=== PATIENT | female | born 1995 | race Caucasian/White ===

== ENCOUNTER → 2024-09-25 | Outpatient (CLI) | payer OTHER, SELFPAY ==
[2024-09-28 21:07] LABS: Chlamydia By Nucleic Acid AMP Negative (Negative); Gonococcus By Nucleic Acid AMP Negative (Negative)
== END | disposition home or self-care (01) ==
LOC: LABSPEC 11:39
PROVIDERS: Referring Provider Obstetrics & Gynecology; Visit Provider Obstetrics & Gynecology
DX: O99.210 Obesity complicating pregnancy, unspecified trimester (principal); Z3A.00 Weeks of gestation of pregnancy not specified
CPT/HCPCS: 87086; 87088; 87491; 87591

== ENCOUNTER → 2024-10-08 | Outpatient (CLI) | payer OTHER, SELFPAY ==
[2024-10-08 17:08] LABS: Absolute Lymphocyte Count 1.99 X10^3/uL (0.83-4.51); Absolute Neutrophil Count 6.6 X10^3/uL (2.0-7.7); Basophil# 0.03 X10^3/uL; Basophil% 0.3 % (0-1); Eosinophil# 0.07 X10^3/uL; Eosinophils% 0.8 % (0-5); Hematocrit 35.1 % (37-47); Hemoglobin 11.5 g/dL (12.0-15.0); Lymphocyte # 1.99 X10^3/ul (0.83-4.51); Lymphocyte % 21.6 % (19-41); Mean Corp Hgb Conc 32.8 g/dL (32-36); Mean Corpuscular Hgb 29.8 pg (27.0-32.0); Mean Corpuscular Volume 90.9 fL (81-99); Mean Platelet Vol. 9.5 fl (6.2-12.0); Monocyte# 0.47 X10^3/uL; Monocyte% 5.1 % (0-10); NRBC Flagged by Analyzer 0 % (0-5); Neutrophil # 6.62 X10^3/uL (2.7-7.7); Neutrophil % 71.9 % (47-70); Platelet Count 277 K/mm3 (150-450); RBC Distribution Width CV 13.1 % (11.6-14.6); RBC Distribution Width SD 42.8 fl (35.1-43.9); Red Blood Count 3.86 M/mm3 (4.2-5.4); White Blood Count 9.2 K/mm3 (4.4-11.0)
[2024-10-08 18:12] LABS: HIV Nonreactive (Nonreactive); Hepatitis B Surface Antigen Nonreactive (Nonreactive); Hepatitis C Antibody Nonreactive (Nonreactive); Rubella IgG REAC (Nonreactive); Syphilis Antibodies Nonreactive (Nonreactive)
[2024-10-08 19:02] LABS: Hemoglobin A1c 5.1 % (<=5.6)
== END | disposition home or self-care (01) ==
PROVIDERS: Referring Provider Obstetrics & Gynecology; Visit Provider Obstetrics & Gynecology
DX: O99.210 Obesity complicating pregnancy, unspecified trimester (principal); Z3A.00 Weeks of gestation of pregnancy not specified
CPT/HCPCS: 36415; 83036; 85025; 86703; 86762; 86780; 86803; 86850; 86900; 86901; 87340

== ENCOUNTER → 2024-12-04 | Outpatient (CLI) | payer OTHER, SELFPAY ==
--- NOTE | 2024-12-04 15:18 | US_ITS ---
PROCEDURE: OB ANATOMY W/ TRANSVAGINAL 12/04/2024 REASON FOR EXAM: ANATOMY SCAN 18-20WKS TECHNIQUE: OB ANATOMY W/ TRANSVAGINAL COMPARISON: None FINDINGS Number: 1 Position: Transverse left Placental Position: Posterior and not low-lying Placental Abnormalities: No evidence of previa. DIMENSIONS: Biparietal Diameter: 4.6 cm: 19 weeks and 5 days: 23rd percentile/ Head Circumference: 17 cm: 19 weeks and 4 days: 11 percentile/ Abdominal Circumference: 15.2 cm: 20 weeks and 3 days: 43rd percentile/ Femur Length: 3.3 cm: 20 weeks and 1 day: 33rd percentile/ ESTIMATED WEIGHT: 342 g plus/-51 g ESTIMATED WEIGHT PERCENTILE (24+ weeks): 35th ESTIMATED GESTATIONAL AGE: Baseline: 20 weeks and 3 days By Ultrasound: 19 weeks and 6 days ESTIMATED DATE OF DELIVERY: Baseline: April 20, 2025 By Ultrasound: April 24, 2025 BIOPHYSICAL ASSESSMENT: Amniotic Fluid Volume: 4.4 Amniotic Fluid Index: Within normal limits (8-24 cm normal range) Cardiac Motion: 147 beats per minute (average) Trunk and Limb Motion: Present. MATERNAL ANATOMY: Adnexa: Both maternal ovaries are visualized and unremarkable. Cervical Length (if measured): 4.9 cm ANATOMY: Spine: Unremarkable Cranium: Unremarkable Cerebellum: Unremarkable Cisterna Magna: Unremarkable Cavum Septum Pellucidi: Unremarkable Lateral Ventricles: Unremarkable Choroid Plexus: Unremarkable Midline Falx: Unremarkable Nuchal Fold: Unremarkable Heart: Unremarkable Stomach: Unremarkable Kidneys: Unremarkable Bladder: Unremarkable Umbilical Cord: Normal placental insertion. cord insertion not seen well. Extremities: Unremarkable US/OB Anatomy w/ Transvaginal IMPRESSION: Single live intrauterine gestation with a mean gestational age of 19 weeks and 6 days. Reading Location: [facility]
== END | disposition home or self-care (01) ==
LOC: US 15:17
PROVIDERS: Referring Provider Nurse Practitioner Women's Health; Visit Provider Nurse Practitioner Women's Health
DX: Z34.92 Encounter for supervision of normal pregnancy, unspecified, second trimester (principal)
CPT/HCPCS: 76805; 76817

== ENCOUNTER → 2025-01-13 | Outpatient (CLI) | payer OTHER, SELFPAY ==
[2025-01-13 11:00] LABS: Hematocrit 34.9 % (37-47); Hemoglobin 11.9 g/dL (12.0-15.0); Immature Granulocytes Count 0.080 X10^3/uL (0.0-0.0); Mean Corp Hgb Conc 34.1 g/dL (32-36); Mean Corpuscular Volume 94.1 fL (81-99); Mean Platelet Vol. 9.7 fl (6.2-12.0); NRBC Flagged by Analyzer 0 % (0-5); Platelet Count 286 K/mm3 (150-450); RBC Distribution Width CV 12.9 % (11.6-14.6); RBC Distribution Width SD 44.0 fl (35.1-43.9); Red Blood Count 3.71 M/mm3 (4.2-5.4); White Blood Count 10.5 K/mm3 (4.4-11.0)
[2025-01-13 12:12] LABS: Glucose Challenge Gest 1H 50g 152 mg/dL (70-140); HIV Nonreactive (Nonreactive); Syphilis Antibodies Nonreactive (Nonreactive)
--- OUTSIDE RECORDS SUMMARY | 2025-01-13 14:26 | XMS RPT_ITS | CCD ---
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 mass] 29.8 pg Normal 27.0-32.[address] [facility] Comment on above: Performed By: #### L 509.8002, L3890.6006, L509.4006, L100.0100, L3890.6102, L900.0098, BTS, L3890.6301, L501.9985 #### [facility] [address] [place], [address] MCHC (RBC) [Mass/Vol] 32.8 g/dL Normal 32-36 [facility] Comment on above: Performed By: #### L 509.8002, L3890.6006, L509.4006, L100.0100, L3890.6102, L900.0098, BTS, L3890.6301, L501.9985 #### [facility] [address] [place], [address] MCV (RBC) [Entitic vol] 90.9 fL Normal 81-99 [facility] Comment on above: Performed By: #### L 509.8002, L3890.6006, L509.4006, L100.0100, L3890.6102, L900.0098, BTS, L3890.6301, L501.9985 #### [facility] [address] [place], [address] Monocytes/100 WBC (Bld) 5.1 % Normal 0-10 [facility] Comment on above: Performed By: #### L 509.8002, L3890.6006, L509.4006, L100.0100, L3890.6102, L900.0098, BTS, L3890.6301, L501.9985 #### [facility] [address] [place], [address] Neutrophils/100 WBC (Bld) 71.9 % High 47-[address] [facility] Comment on above: Performed By: #### L 509.8002, L3890.6006, L509.4006, L100.0100, L3890.6102, L900.0098, BTS, L3890.6301, L501.9985 #### [facility] [address] [place], [address] Nucleated RBC (Bld) [#/Vol] 0 10*3/uL Normal 0-[address] [facility] Comment on above: Performed By: #### L 509.8002, L3890.6006, L509.4006, L100.0100, L3890.6102, L900.0098, BTS, L3890.6301, L501.9985 #### [facility] [address] [place], [address] Platelet mean volume (Bld) [Entitic vol] 9.5 fL Normal 6.2-12.[address] [facility] Comment on above: Performed By: #### L 509.8002, L3890.6006, L509.4006, L100.0100, L3890.6102, L900.0098, BTS, L3890.6301, L501.9985 #### [facility] [address] [place], [address] Platelets (Bld) [#/Vol] 277 10*3/uL Normal 150-[address] [facility] Comment on above: Performed By: #### L 509.8002, L3890.6006, L509.4006, L100.0100, L3890.6102, L900.0098, BTS, L3890.6301, L501.9985 #### [facility] [address] [place], [address] RBC (Bld) [#/Vol] 3.86 10*6/uL Low 4.2-5.4 [facility] Comment on above: Performed By: #### L 509.8002, L3890.6006, L509.4006, L100.0100, L3890.6102, L900.0098, BTS, L3890.6301, L501.9985 #### [facility] [address] [place], [address] RDW SD 42.8 fl Normal 35.1-43.[address] [facility] Comment on above: Performed By: #### L 509.8002, L3890.6006, L509.4006, L100.0100, L3890.6102, L900.0098, BTS, L3890.6301, L501.9985 #### [facility] [address] [place], [address] WBC (Bld) [#/Vol] 9.2 10*3/uL Normal 4.4-11.0 [facility] Comment on above: Performed By: #### L 509.8002, L3890.6006, L509.4006, L100.0100, L3890.6102, L900.0098, BTS, L3890.6301, L501.9985 #### [facility] [address] [place], [address] Eosinophil percentageOrdered By: Audra Garcia on 10-08-2024 Eosinophils/100 WBC (Bld) 0.8 % 0-[address] [facility] Erythrocyte distribution wid th ratioOrdered By: Audra Garcia on 10-08-2024 Erythrocyte distribution width (RBC) [Ratio] 13.1 % 11.6-14.[address] [facility] Erythrocyte distribution wid th standard deviationOrdered By: Audra Garcia on 10-08-2024 Erythrocyte distribution width (RBC) [Ratio] 42.8 fl 35.1-43.[address] [facility] HIVon 10-08-2024 HIV Non-Reactive Normal Nonreactive [facility] Comment on above: Result Comment: Non- Reactive Reactive Repeatedly reactive samples must be confirmed according to CDC recommended confirmatory algorithms. The subresults for either HIVAG or AHIV can be used as an aid in the selection of the confirmation algorithm for reactive samples. Send out specimens with Reactive results to [facility] for confirmation. Order the HIV antibody detection and differentiation: lc#[id number] Performed By: #### L 509.8002, L3890.6006, L509.4006, L100.0100, L3890.6102, L900.0098, BTS, L3890.6301, L501.9985 ####[facility] [address] [place], [place], [address] Hematocrit Auto (Bld) [Volum e fraction]Ordered By: Audra Garcia on 10-08-2024 Hematocrit (Bld) [Volume fraction] 35.1 % Low 37-[address] [facility] Hemoglobin A1con 10-08-2024 HbA1c (Bld) [Mass fraction] 5.1 % Normal <=5.[address] [facility] Comment on above: Result Comment: Norm al < 5.7 % Prediabetic 5.7 - 6.4 % Diabetic >or= 6.5 % Please note range changes. Performed By: #### L 509.8002, L3890.6006, L509.4006, L100.0100, L3890.6102, L900.0098, BTS, L3890.6301, L501.9985 ####[facility] [address] [place], [address] Hemoglobin A1c percentageOrd ered By: Audra Garcia on 10-08-2024 HbA1c (Bld) [Mass fraction] 5.1 % <5.[address] [facility] Comment on above: Normal < 5.7 % Predi abetic 5.7 - 6.4 % Diabetic >or= 6.5 % Please note range changes. Hemoglobin measurementOrdere d By: Audra Garcia on 10-08-2024 Hemoglobin (Bld) [Mass/Vol] 11.5 g/dL Low 12.0-15.[address] [facility] Hepatitis C Antibodyon 10-08 Hepatitis C Ab Non-Reactive Normal Nonreactive [facility] Comment on above: Result Comment: Reac tive: Presumptive evidence of antibodies to HCV. Follow CDC recommendations for supplemental testing. Non-Reactive: Antibodies to HCV were not detected; does not exclude the possibility of exposure to HCV Reactive Results are presumptive evidence of antibodies to HCV. Follow CDC recommendations for supplemental testing. Order confirmation testing: HCV Quant by PCR testing - HCVPCR #[id number] Non Reactive: < 0.8 Equivocal: >/= 0.8 to < 1.0 Reactive: >/= 1.0 The CDC requires that a reactive/equivocal HCV antibody result be sent out for confirmation. HCV Quant by PCR testing. Performed By: #### L 509.8002, L3890.6006, L509.4006, L100.0100, L3890.6102, L900.0098, BTS, L3890.6301, L501.9985 ####[facility] [address] [place], [address] Immature granulocytes/100 WB C Auto (Bld)Ordered By: Audra Garciaparrish on 10-08-2024 Immature granulocytes/100 WBC (Bld) 0.300 % 0.0-0.[address] [facility] Comment on above: IG% - Immature Granu locytes (promyelocytes, myelocytes and metamyelocytes) > 1% indicates that a LEFT SHIFT is Present. L3890.6102on 10-08-2024 HEP B Surf Ag Non-Reactive Normal Nonreactive [facility] Comment on above: Result Comment: Reac tive: Presumptive evidence of HBV. Repeatedly reactive samples must be confirmed using a neutralization test ([employer] HBsAg Confirmatory Test) Non-Reactive: HBsAg not detected; does not exclude the possibility of exposure to HBV Performed By: #### L 509.8002, L3890.6006, L509.4006, L100.0100, L3890.6102, L900.0098, BTS, L3890.6301, L501.9985 ####[facility] [address] [facility] [place], [place], [address] L509.4006on 10-08-2024 Rubella IgG REAC Normal Nonreactive [facility] Comment on above: Result Comment: Anti body Result: Interpretation Non-Reactive: Non-Immune Reactive: Immune The following results were obtained with the [employer] Rubella IgG assay. Results from assays of other manufacturers cannot be used interchangeably. Performed By: #### L 509.8002, L3890.6006, L509.4006, L100.0100, L3890.6102, L900.0098, BTS, L3890.6301, L501.9985 #### [facility] [address] [facility] [place], [address] Laboratory - Microbiology an d Antimicrobial susceptibilityOrdered By: Audra Garcia on 10-08-2024 HBV surface Ag Ql (S) Non-Reactive Nonreactive [facility] Comment on above: Reactive: Presumptiv e evidence of HBV. Repeatedly reactive samples must be confirmed using a neutralization test ([employer] HBsAg Confirmatory Test)Non-Reactive: HBsAg not detected; does not exclude the possibility of exposure to HBV MCV (mean corpuscular volume ) determinationOrdered By: Audra Garcia on 10-08-2024 MCV (RBC) [Entitic vol] 90.9 fL 81-99 [facility] Mean corpuscular hemoglobin (MCH) determinationOrdered By: Audra Garcia on 10-08-2024 MCH (RBC) [Entitic mass] 29.8 pg 27.0-32.[address] [facility] Mean corpuscular hemoglobin concentration (MCHC) determinationOrdered By: Audra Garcia on 10-08-2024 MCHC (RBC) [Mass/Vol] 32.8 g/dL 32-36 [facility] Mean platelet volume determi nationOrdered By: Audra Garcia on 10-08-2024 Platelet mean volume (Bld) [Entitic vol] 9.5 fL 6.2-12.[address] [facility] Monocyte percentageOrdered B y: Audra Garcia on 10-08-2024 Monocytes/100 WBC (Bld) 5.1 % 0-10 [facility] NATERAon 10-08-2024 NATURA SEE SCANNED REPORT Normal [facility] Comment on above: Performed By: #### L 509.8002, L3890.6006, L509.4006, L100.0100, L3890.6102, L900.0098, BTS, L3890.6301, L501.9985 #### [facility] [address] [facility] [place], [address] Neutrophil percentageOrdered By: Audra Garcia on 10-08-2024 Neutrophils/100 WBC (Bld) 71.9 % High 47-[address] [facility] No Panel InformationOrdered By: Audra Garcia on 10-08-2024 HIV (1&2) Antibody Non-Reactive Nonreactive [facility] Comment on above: Non-ReactiveReactive Repeatedly reactive samples must be confirmed according to CDC recommended confirmatory algorithms. The subresults for either HIVAG or AHIV can be used as an aid in the selection of the confirmation algorithm for reactive samples.Send out specimens with Reactive results to [facility] for confirmation.Order the HIV antibody detection and differentiation: #[id number] Nucleated red blood cell per centageOrdered By: Audra Garcia on 10-08-2024 Nucleated RBC/100 WBC (Bld) [Ratio] 0 % 0-[address] [facility] Platelet countOrdered By: Nhung Garcia on 10-08-2024 Platelets (Bld) [#/Vol] 277 10*3/uL 150-[address] [facility] RBC Auto (Bld) [#/Vol]Ordere d By: Audra Garcia on 10-08-2024 RBC (Bld) [#/Vol] 3.86 10*6/uL Low 4.2-5.4 [facility] Syphilis Antibodieson 2024 Syphilis Abs Non-Reactive Normal Nonreactive [facility] Comment on above: Performed By: #### L 509.8002, L3890.6006, L509.4006, L100.0100, L3890.6102, L900.0098, BTS, L3890.6301, L501.9985 ####[facility] [address] [place], [address] Type AND Screenon 10-08-2024 ABO and Rh group Nom (Bld) Blood group O Rh(D) positive Normal [facility] Comment on above: Order Comment: PN Performed By: #### L 509.8002, L3890.6006, L509.4006, L100.0100, L3890.6102, L900.0098, BTS, L3890.6301, L501.9985 #### [facility] [address] [place], [address] White blood cell (WBC) count Ordered By: Audra Garcia on 10-08-2024 WBC (Bld) [#/Vol] 9.2 10*3/uL 4.4-11.0 [facility] Chlamydia/GC MELANIA aptimaon CHLAMY,NUC ACID Negative Normal Negative [facility] Comment on above: Performed By: #### M 100.2200, L7000.1800 #### [facility] [address] [place], [address] GC BY NUC ACID Negative Normal Negative [facility] Comment on above: Result Comment: Perf ormed at: =G - [facility] [address] [place] [id number] Bereavement Counselor: Josephine Obrien MD, Phone: [phone] Performed By: #### M 100.2200, L7000.1800 #### [facility] [address] [place], [place], [id number] Urine Cultureon 09-27-2024 URC Mixed Gram Positive Organisms [place] Count 80,000-100,000 MIXC Mixed contaminants. Submit a new specimen if indicated. Normal [facility] Comment on above: Performed By: #### M 100.2200, L7000.1800 #### [facility] [address] [place], [place], [id number] C. trachomatis rRNA MELANIA+prob e Ql (Unsp spec)Ordered By: Audra Garcia on 09-25-2024 Chlamydia DNA (MELANIA) Negative Negative [facility] Chlamydia trachomatis rRNA d etection by probe and target amplification methodOrdered By: Audra Garcia on 09-25-2024 C. trachomatis rRNA MELANIA+probe Ql (Unsp spec) Negative Negative [facility] Neisseria gonorrhoeae nuclei c acid detection by amplified probe techniqueOrdered By: Audra Garcia on 09-25-2024 N. gonorrhoeae DNA MELANIA+probe Ql (Unsp spec) Negative Negative [facility] Comment on above: Performed at: =[address] [id number] Director: Josephine Obrien MD, Phone: [phone] [employer] Office Visit Reporton 09-25-2024 [employer] Office Visit Report [facility] [address], [address] [place] [address] OFFICE VISIT Date of Service: 09/25/24 MR#: [id number] Acct: [id number] Name: AMIRA SULLIVAN Rep #: [id number] : 1995 Provider: Dr. Audra morris MD Age/Sex: 28/F Location[place] [facility] [place]: Signed Intake Vital Signs 09/25/24 10:22 Height 5 ft 8 in Weight: 255 lb BMI 38.7 BP 139/85 H Intake Visit Reasons: NEW OB Dietary Aid Required: No Is patient in pain?: No Feel stressed/tense/nerv ous/anxious/difficu lty sleeping: to some extent (patient has a lot of anxiety) Allergies No Known Allergies Allergy (Unverified 09/25/24 10:16) Medications ???Medication ???Instructions ???Recorded ???Confirmed ???Type PNV-iron 29 mg-folic acid 1 pkg PO 09/10/24 History ef-vojns-1-dha 200 mg oral combo pack ondansetron HCl 4 mg tablet 4 mg PO Q4H #60 tabs 09/25/2409/15 Rx Last Menstrual Period: 07/14/24 Zika: Zika virus screening: Negative : Yes PFSH PFSH Medical History (Updated 09/25/24 @ 11:[address] 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 pets and animals: cat(s) and dog(s) history of recent travel: No sexually active: Yes Smoking Status: Former smoker quit date: 06/17/24 Tobacco: How many years used: 4 Smokeless tobacco user: other second hand exposure: No alcohol intake: never substance use type: does not use diet: lactose free well-balanced diet: about half the time caffeine: No during the past year weight has: increased > 10 lbs what type of physical activity do you participate in: walking and other details: ballet frequency: 1-2 times per week seatbelt use: always do you feel safe at home: Yes additional social history: Leonides - retired vet, [employer] currently History 1 Elective abortions Hx Para 0 Spontaneous abortions Hx # Term Pregnancies Ectopic pregnancies Hx # Pregnancies Multiple births # of living children HPI NEW OB Details: AMIRA SULLIVAN is a 28 year old who presents for New OB visit. OB Visit KRAIG Calculator Estimated Delivery Date Method Current WG Current Estimate 04/20/25 LMP (Certain) 10w 3d Other Estimates 04/20/25 Ultrasound #1 10w 3d Comments: HIV: Urine Culture: Sequential Screen: NIPT Screen: Estimated Due Date: 04/20/25 Expected Delivery Route/Plan Labor Preferences- CB/BF classes: [] labor support person: [] labor intervention preferences: [] pain management options preferred: [] cut cord/dad catch: [] : [] PP control planned: [] discussed possible routes of delivery and associated risks: [] special requests: [] Specific Issue/Plans Covid status: [] Flu vaccine: [] Tdap vaccine: [] Rhogam: [] LARC form signed: [] Problem list reviewed and updated with the most current plan of care details and appropriate orders placed. Relevant counseling for the gestational age provided. Continue routine care and follow up unless otherwise noted in visit notes/problem list details Initial Weight: Not Recorded Date -???-???-???-???-?? ?-???-???-???-???-? ??-???-???- EGA Weight BP Urine Prot -???-???-???-???-?? ?-???-???-???-???-? ??-???-???- Glucose FHR FuHt Pres Dilation -???-???-???-???-?? ?-???-???-???-???-? ??-???-???- Effaced St Visit Note 09/25/24 -???-???-???-???-?? ?-???-???-???-???-? ??-???-???- 10w 3d 255 lb 139/85 -???-???-???-???-?? ?-???-???-???-???-? ??-???-???- 169 -???-???-???-???-?? ?-???-???-???-???-? ??-???-???- SM- CRL cons with LMP SM- CRL 3.5 cm cons with LMP Menstrual History Last Menstrual Period: 07/14/24 Reported LMP: definite Normal amount/duration: No (shorter than normal, 3 days) On hormonal BC at conception: No hCG+: 08/12/24 Antepartum Record Genetic Screening: Congenital Heart Defect: Other, Neural Tube Defect: Other, Hemoglobinopathy Or Carrier: Other, Cystic Fibrosis: Other, Chromosome Abnormality: Other, Yazan-Sachs: Other, Hemophilia: Partner ( Leonides - factor V, was on Eliquis), Intellectual Disability/Autism: Other, Recurrent Loss/Stillbirth: Other, Other Structural Defect: Other, Other Genetic Disease: Other and Maternal Metabolic Disorder: Other Infection History: Live with someone with TB or Exposed to TB: No, Patient or Partner has history of Genital Herpes: No, Roberto (more content not included)... Normal [facility] Urine cultureOrdered By: Petey Garcia on 09-25-2024 Bacteria identified Cx Nom (U) Positive Abnormal [facility] CNOVon 07-04-2023 CNOV Office Visit ([facility]) ---- AMIRA SULLIVAN ([id number]) 1995 F Date Time Provider Department 07/04/23 1:00 PM MARY CERVANTES [facility] During your visit today, we recorded the following information about you: Temperature Pulse Respiration Blood pressure 97.9 degrees 71/minute 16/minute 122/74 Weight Height Last Period 107 kg 1.727 m 06/18/23 Mary Cervantes MD 07/04/2023 2:49 PM Signed ESTABLISHED PATIENT Amira SULLIVAN is a 27 year old female Patient presents with: Establish Care: Right wrist pain through the thumb was broken as a child HISTORY OF PRESENT ILLNESS She is here to establish care. Her former PCP is Dr Jessica Dial with [facility]. She reports right wrist pain for a couple months ago. She reports difficulty using it for awhile but better more recently. She reports she was unable to extend her thumb pain and had excruciating pain to grasp anything twisting and lifting. Or bumped it. She tried stabilizer, ice. Now she has dull ache all the time. She is able to grasp now. 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 She has exercise induced asthma She would like to lose weight. She had been exercising but not as much lately with her fiance's health concerns so gym membership on hold. She has been eating healthier. She has lost 20# in last couple months She is getting in October. HISTORIES History reviewed. No pertinent family history. History reviewed. No pertinent past medical history. History reviewed. No pertinent surgical history. Social History Tobacco Use Smoking status: Never Smokeless tobacco: Never Allergies: ALLERGIES No Known Allergies Medications: etonogestrel (NEXPLANON) 68 mg subdermal implant TRACI SALBADOR 68 mg by SUBDERMAL route one time only. benzonatate (TESSALON PERLE) 100 mg capsule Take 1 capsule by mouth three times daily as needed. (Patient not taking: Reported on 07/04/2023) REVIEW OF SYSTEMS GENERAL: No weight loss, malaise or fevers. RESPIRATORY: Negative for cough, hemoptysis, wheezing or shortness of breath. CARDIOVASCULAR: Negative for chest pain, leg swelling or palpitations. All other systems reviewed and negative other than HPI. PHYSICAL EXAM BP 122/74 Pulse 71 Temp 36.6 ?C (97.9 ?F) Resp 16 Ht 172.7 cm (5' 8) Wt 107 kg (235 lb 14.3 oz) LMP 06/18/2023 (Approximate) SpO2 100% BMI 35.87 kg/m? General Appearance: Well appearing, alert, in no acute distress, well-hydrated, well nourished.. Head: Normocephalic, no masses, lesions, tenderness or abnormalities. Ears: External ears normal, canals clear. Oropharynx: Lips, mucosa, and tongue normal, teeth and gums normal, oropharynx normal. Lungs: Lungs clear to auscultation. No wheezing, rhonchi, rales.. Heart: RRR without murmur, gallop, or rubs. No ectopy. Abdomen: Normal abdominal exam, Abdomen soft, non-tender. Bowel sounds normal. No masses, organomegaly. Musculoskeletal: No joint swelling or tenderness, Negative findings: Pulses: 2+, Positive findings: joint location: on right wrist pain and painful movement.+ tenderness adjacent to right radial styloid; +Kasey's on right ASSESSMENT: ASSESSMENT/PLAN: 1. 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 Advise wrist splint, ice as needed, Can take OTC Ibuprofen or Aleve, rest as able - XR WRIST GENERAL 3V PA/LAT/OBL RIGHT - Call if no better will refer to ortho hand Return ~6 months for CPE MD Stephen Joy Tara, MA 07/04/2023 2:49 PM Signed Covid-19 Vaccine(1) Never done HPV Vaccine(1 - 2-dose series) Never done Hepatitis C Screening Never done HIV Screening Never done Pap Testing Never done DTaP,Tdap,Td Vaccine(7 - Td or Tdap) due on 02/02/2020 Influenza Vaccine(1) Never done Depression Assessment Never done Allergies As of Date: 07/04/2023 (No Known Allergies) Date Reviewed: 07/04/2023 Reviewed by: Mary Cervantes MD - Fully Assessed Reason for Visit: Establish Care [42] Cmt: Right wrist pain through the thumb was broken as a child Primary Visit Diagnosis:Right wrist pain [M25.531] Other Visit Diagnoses:Tendiniti s, de Quervain's [M65.4] Asthma, exercise induced [J45.990] Order(s):XR WRIST GENERAL 3V PA/LAT/OBL RIGHT [9209559] Order #: [id number] FUTURE Prescriptions as of 07/04/2023 - etonogestrel (NEXPLANON) 68 mg subdermal implant TRACI SALBADOR 68 mg by SUBDERMAL route one time only. - benzonatate (TESSALON PERLE) 100 mg capsule Take 1 capsule by mouth three times daily as needed. Problem List As Of Date 07/04/2023 Noted Resolved Orthostatic hypotension [I95.1] 12/20/2011 Tendinitis, de Quervain's [M65.4] 07/04/2023 Asthma, exercise induced [J45.990] 07/04/2023 Right wrist pain [M25.531] 07/04/2023 Level of Serv (more content not included)... Normal [facility] Vital Signs Date Time Vital Sign Value Performing Clinician Marilyn duran 01-13-2025 09:59-0400 Body height 172.[address] Audra Garcia MD Work Phone: [facility] 01-13-2025 09:59-0400 Body mass index (BMI) [Ratio] 45.5 kg/m2 Dr. Audra Garcia MD Work Phone: [phone] [place] [address] 01-13-2025 09:59-0400 Body weight 120.[address] Audra Garcia MD Work Phone: [phone] [place] [address] 01-13-2025 09:59-0400 Diastolic blood pressure 73 mm[Hg] Dr. Audra Garcia MD Work Phone: [phone] [place] [address] 01-13-2025 09:59-0400 Systolic blood pressure 113 mm[Hg] Dr. Audra Garcia MD Work Phone: [phone] [place] [address] 12-15-2024 10:07-0400 Body height 172.[address] Audra Garcia MD Work Phone: 4(314)744-039676 [place] [address] 12-15-2024 10:07-0400 Body mass index (BMI) [Ratio] 39.5 kg/m2 Dr. Audra Garcia MD Work Phone: 2(138)766-683876 [place] [address] 12-15-2024 10:07-0400 Body weight 117.[address] Audra Garcia MD Work Phone: 9(895)167-927376 [place] [address] 12-15-2024 10:07-0400 Diastolic blood pressure 72 mm[Hg] Dr. Audra Garcia MD Work Phone: 3(096)089-748276 [place] [address] 12-15-2024 10:07-0400 Systolic blood pressure 120 mm[Hg] Dr. Audra Garcia MD Work Phone: 7(192)035-502776 [place] [address] 11-17-2024 13:32-0400 Body height 172.[address] Audra Garcia MD Work Phone: 3(818)793-304076 [place] [address] 11-17-2024 13:32-0400 Body mass index (BMI) [Ratio] 39.2 kg/m2 Dr. Audra Garcia MD Work Phone: 8(268)819-450876 [place] [address] 11-17-2024 13:32-0400 Body weight 117.[address] Audra Garcia MD Work Phone: 6(358)376-795576 [place] [address] 11-17-2024 13:32-0400 Diastolic blood pressure 70 mm[Hg] Dr. Audra Garcia MD Work Phone: 7(694)960-159976 [place] [address] 11-17-2024 13:32-0400 Systolic blood pressure 124 mm[Hg] Dr. Audra Garcia MD Work Phone: 0(309)727-618276 [place] [address] 10-23-2024 10:47-0400 Body mass index (BMI) [Ratio] 39.3 kg/m2 Dr. Audra Garcia MD Work Phone: 8(421)027-392876 [place] [address] 10-23-2024 10:47-0400 Body weight 117.[address] Audra Garcia MD Work Phone: 8(779)644-122376 [place] [address] 10-23-2024 10:47-0400 Diastolic blood pressure 68 mm[Hg] Dr. Audra Garcia MD Work Phone: 0(552)281-431076 [place] [address] 10-23-2024 10:47-0400 Systolic blood pressure 116 mm[Hg] Dr. Audra Garcia MD Work Phone: 4(125)072-403476 [place] [address] 09-25-2024 10:22-0400 Body height 172.[address] Audra Garcia MD Work Phone: 2(482)731-366776 [place] [address] 09-25-2024 10:22-0400 Body mass index (BMI) [Ratio] 38.7 kg/m2 Dr. Audra Garcia MD Work Phone: 7(035)865-550376 [place] [address] 09-25-2024 10:22-0400 Body weight 115.[address] Audra Garcia MD Work Phone: 2(492)219-000076 [place] [address] 09-25-2024 10:22-0400 Diastolic blood pressure 85 mm[Hg] Dr. Audra Garcia MD Work Phone: [facility] 09-25-2024 10:22-0400 Systolic blood pressure 139 mm[Hg] Dr. Audra Garcia MD Work Phone: [facility] Encounters Encounter Date Encounter Type Care Provider Facility Start: 01-13-2025 End: 01-13-2025 ambulatory Rafaela Barksdale Facility:[facility] Start: 01-13-2025 End: 01-13-[address] Rafaela Barksdale DO -[facility] Work Phone: Start: 12-15-2024 End: 12-15-2024 Patient encounter procedure Jewels Ponce LIQU[facility] TE[facility]-C -[facility] Work Phone: Start: 12-15-2024 End: 12-15-[address] Audra Garcia MD Work Phone: -[facility] Start: 12-04-2024 End: 12-04-[address] Audra Garcia MD Work Phone: [facility] Work Phone: Start: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 Provider Active Start: December 15, 2024 End: December 15, 2024 Team Status: Inactive Member Role/Relationship Status Dates No Primary Care Physician Primary Care Provider Active Start: January 13, 2025 End: January 13, 2025 No Primary Care Physician Referring Provider Active Start: January 13, 2025 End: January 13, 2025 Dr. Rafaela Barksdale , Attending Provider Activ e Start: January 13, 2025 End: January 13, 2025 Team Status: Active Member Role/Relationship Status Dates No Primary Care Physician Primary Care Provider Active Start: January 13, 2025 Jewels Ponce NP, LIQUOR TESTER-C Attending Provider Active Start: January 13, 2025 Goals (unrecognized section and content) Goals may be documented in a n alternate sectionGoals may be documented in an alternate sectionGoals may be documented in an alternate sectionGoals may be documented in an alternate sectionGoals may be documented in an alternate section FOR RECORDS PERTAINING TO PATIENTS WHO ARE OR HAVE BEEN ENROLLED IN A CHEMICAL DEPENDENCY/SUBSTANCEABUSE PROGRAM, SOME INFORMATION MAY BE OMITTED. This clinical summary was aggregated from multiple sources. Caution should be exercised in using it in the provision of clinical care. This summary normalizes information from multiple sources, and as a consequence, information in this document may materially change the coding, format and clinical context of patient data. In addition, data may be omitted in some cases. CLINICAL DECISIONS SHOULD BE BASED ON THE PRIMARY CLINICAL RECORDS. [facility] [employer] [facility]. provides no warranty or guarantee of the accuracy or completeness of information in this document.
== END | disposition home or self-care (01) ==
LOC: BWCLAB 09:55
PROVIDERS: Visit Provider Nurse Practitioner Women's Health
DX: O09.92 Supervision of high risk pregnancy, unspecified, second trimester (principal); Z3A.00 Weeks of gestation of pregnancy not specified; Z13.1 Encounter for screening for diabetes mellitus
CPT/HCPCS: 36415; 82950; 85025; 86703; 86780

== ENCOUNTER → 2025-01-15 | Outpatient (CLI) | payer OTHER, SELFPAY ==
--- OUTSIDE RECORDS SUMMARY | 2025-01-15 06:41 | XMS RPT_ITS | CCD ---
Author Organization [facility] Care Team Providers Care Dispatcher Maintenance Name Role Phone TIRSOJESSICA BENOIT Attending Unavailable TIRSO, JESSICA Referring Unavailable TIRSO, JESSICA Primary Care Unavailable MARY CERVANTES Attending Unavailable Jose MINER, Dr. Zhu Attending Provider [phone] Dr. Audra Garcia MD Referring Provider [phone] Care Physician, No Primary Primary Care Provider Unavailable Didi Luong CNM Attending Provider [phone] Care Physician, No Primary Referring Provider Un available Kris TRIMMER MEAT-CJewels Attending Provider [phone] Kris [employer]MER [employer]-C, Jewels Referring Provider [phone] Dr. Rafaela Barksdale DO Attending Provider Audra Garcia Referring Unavailable Audra Garcia Attending Unavailable Care Physician, No Primary Primary Care Unava ilable [place] TRIMMER MEAT, Jewels Referring Unavailable Kris TRIMMER MEAT, Jewels Attending Unavailable Kris TRIMMER MEAT, Jewels Attending Unavailable Care Physician, No Primary Primary Care Unava ilable [place] [employer], Jewels Referring Unavailable [place] TRIMMER [employer], Jewels Attending Unavailable Care Physician, No Primary Primary Care Unava ilable Care Physician, No Primary Primary Care Unava ilable Audra Garcia Attending Unavailable Audra Garcia Referring Unavailable Care Physician, No Primary Referring Unava ilable Care Physician, No Primary Primary Care Unava ilable Didi Luong Attending Unavailable Care Physician, No Primary Referring Unava ilable Care Physician, No Primary Primary Care Unava ilable Rafaela Barksdale Attending Unavailabl e Audra Garcia Attending Unavailable Care Physician, No Primary Referring Unava ilable [place] [employer], Jewels Attending Unavailable Care Physician, No Primary Primary Care Unava ilable Fabio Bertha Attending Unavailable Care Physician, No Primary Referring Unava ilable KrisJewels medellin NP Attending Unavailable Care Physician, No Primary Primary Care Unava ilable Medications Current Medications Medication Drug Class(es) Dates Sig (Normalized) Sig (Original) ondansetron 4 mg oral tablet (5 sources) Serotonin-3 Receptor Antagonist Start: 09-25-2024 take 1 tablet by mouth every four hours Ondansetron Hcl 4 mg tablet Active 4 mg PO Q4H 60 3 September 25, 2024 12:00am Pnv Cmb 78-Hnqb-Lz-[place]-3- Dha 29 mg iron- 1 mg-200 mg combo pack (5 sources) Start: 09-10-2024 Pnv Cmb 99-Drwk-St-[place]-3 -Dha 29 mg iron- 1 mg-200 mg [...] on above: , KRAIG 11/4, Chri s [id number], KRAIG 11/, C hris Other complications of (2 sources) Supervision of high risk , unspecified, second [...] NIPT w gender & carrier, anatomy nl. Other screening for suspected conditions (not mental disorders or infectious disease) (1 source) Encounter for screening for diabetes mellitus; Translations: [Encounter for screening for diabetes mellitus] Onset: 01-13-2025 Episodic Residual codes; unclassified (3 sources) Nicotine-filled electronic [...] Test Name Value Interpretation Reference Range Facility CBC W/Diff, Automatedon 07-3 Absolute Lymph 1.50 X10 3/uL Normal 0.83-4.51 [facility] Comment on above: Performed By: #### L 100.0100, L501.0250, L509.8002, L3890.6006 #### [facility] [address], [address] Absolute Neut 8.5 X10 3/uL High 2.0-7.7 [facility] Comment on above: Performed By: #### L 100.0100, L501.0250, L509.8002, L3890.6006 #### [facility] [address] [place], [address] Basophils/100 WBC (Bld) 0.3 % Normal 0-1 [facility] Comment on above: Performed By: #### L 100.0100, L501.0250, L509.8002, L3890.6006 #### [facility] [address] [place], [address] Eosinophils/100 WBC (Bld) 0.5 % Normal 0-5 [facility] Comment on above: Performed By: #### L 100.0100, L501.0250, L509.8002, L3890.6006 #### [facility] [address] [place], [address] Erythrocyte distribution width (RBC) [Ratio] 12.9 % Normal 11.6-14.6 [facility] Comment on above: Performed By: #### L 100.0100, L501.0250, L509.8002, L3890.6006 #### [facility] [address] [place], [address] Hematocrit (Bld) [Volume fraction] 34.9 % Low 37-47 [facility] Comment on above: Performed By: #### L 100.0100, L501.0250, L509.8002, L3890.6006 #### [facility] [address] [place], [address] Hemoglobin (Bld) [Mass/Vol] 11.9 g/dL Low 12.0-15.0 [facility] Comment on above: Performed By: #### L 100.0100, L501.0250, L509.8002, L3890.6006 #### [facility] [address] [place], [address] IG% 0.800 Normal 0.0-0.9 [facility] Comment on above: Result Comment: IG% - Immature Granulocytes (promyelocytes, myelocytes and metamyelocytes) > 1% indicates that a LEFT SHIFT is Present. Performed By: #### L 100.0100, L501.0250, L509.8002, L3890.6006 #### [facility] [address] [place], [address] Lymphocytes/100 WBC (Bld) 14.4 % Low 19-41 [facility] Comment on above: Performed By: #### L 100.0100, L501.0250, L509.8002, L3890.6006 #### [facility] [address] [place], [address] MCH (RBC) [Entitic mass] 32.1 pg High 27.0-32.0 [facility] Comment on above: Performed By: #### L 100.0100, L501.0250, L509.8002, L3890.6006 #### [facility] [address] [place], [address] MCHC (RBC) [Mass/Vol] 34.1 g/dL Normal 32-36 [facility] Comment on above: Performed By: #### L 100.0100, L501.0250, L509.8002, L3890.6006 #### [facility] [address] [place], [address] MCV (RBC) [Entitic vol] 94.1 fL Normal 81-99 [facility] Comment on above: Performed By: #### L 100.0100, L501.0250, L509.8002, L3890.6006 #### [facility] [address] [place], [address] Monocytes/100 WBC (Bld) 3.2 % Normal 0-10 [facility] Comment on above: Performed By: #### L 100.0100, L501.0250, L509.8002, L3890.6006 #### [facility] [address] [place], [address] Neutrophils/100 WBC (Bld) 80.8 % High 47-70 [facility] Comment on above: Performed By: #### L 100.0100, L501.0250, L509.8002, L3890.6006 #### [facility] [address] [place], [address] Nucleated RBC (Bld) [#/Vol] 0 10*3/uL Normal 0-5 [facility] Comment on above: Performed By: #### L 100.0100, L501.0250, L509.8002, L3890.6006 #### [facility] [address] [place], [address] Platelet mean volume (Bld) [Entitic vol] 9.7 fL Normal 6.2-12.0 [facility] Comment on above: Performed By: #### L 100.0100, L501.0250, L509.8002, L3890.6006 #### [facility] [address] [place], [address] Platelets (Bld) [#/Vol] 286 10*3/uL Normal 150-450 [facility] Comment on above: Performed By: #### L 100.0100, L501.0250, L509.8002, L3890.6006 #### [facility] [address] [place], [address] RBC (Bld) [#/Vol] 3.71 10*6/uL Low 4.2-5.4 [facility] Comment on above: Performed By: #### L 100.0100, L501.0250, L509.8002, L3890.6006 #### [facility] [address] [place], [address] RDW SD 44.0 fl High 35.1-43.9 [facility] Comment on above: Performed By: #### L 100.0100, L501.0250, L509.8002, L3890.6006 #### [facility] [address] [place], [address] WBC (Bld) [#/Vol] 10.5 10*3/uL Normal 4.4-11.0 [facility] Comment on above: Performed By: #### L 100.0100, L501.0250, L509.8002, L3890.6006 #### [facility] [address] [place], [address] Glucose Challenge Gest 1H 50 sharifa 01-13-2025 GLU GEST 50g 1H 152 mg/dL High 70-140 [facility] Comment on above: Performed By: #### L 100.0100, L501.0250, L509.8002, L3890.6006 #### [facility] [address] [place], [address] HIVon 01-13-2025 HIV Non-Reactive Normal Nonreactive [facility] Comment on above: Result Comment: Non- Reactive Reactive Repeatedly reactive samples must be confirmed according to CDC recommended confirmatory algorithms. The subresults for either HIVAG or AHIV can be used as an aid in the selection of the confirmation algorithm for reactive samples. Send out specimens with Reactive results to [facility] for confirmation. Order the HIV antibody detection and differentiation: [id number] Performed By: #### L 100.0100, L501.0250, L509.8002, L3890.6006 #### [facility] [address] [place], [address] Public Records Researcher Office Visit Reporton 01-13-2025 Public Records Researcher Office Visit Report [facility]'[address], [address] [place] [address] OFFICE VISIT Date of Service: 01/13/25 MR#: [id number] Acct: [id number] Name: AMIRA SULLIVAN Rep #: [id number] : 1995 Provider: Dr. Rafaela Simpson DO Age/Sex: 29/F Location: [facility] Status: Signed Intake Vital Signs 11/17/24 13:32 12/15/24 10:07 01/13/25 09:59 01/13/25 09:59 Height 5 ft 8 in 5 ft 8 in 5 ft 4 in 5 ft 8 in Weight: 265 lb 6 oz BMI 45.5 BP 113/73 Intake Visit Reasons: 26 wk ob/glucose *High Risk Skid Man Required: No Is patient in pain?: No Allergies No Known Allergies Allergy (Verified 01/13/25 09:58) Medications ???Medication ???Instructions ???Recorded ???Confirmed ???Type PNV-iron 29 mg-folic acid 1 pkg PO 09/10/24 01/13/25 History zg-tlngs-7-dha 200 mg oral combo pack ondansetron HCl 4 mg tablet 4 mg PO Q4H #60 tabs 09/25/243 Rx Last Menstrual Period: 07/14/24 Zika: Zika virus screening: Negative : No PFSH PFSH Medical History Asthma Family History Grandmother Breast cancer Aunt Thyroid disorder Social History adopted: No household members: significant other housing: house number of children: 0 current occupational 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 OB Visit KRAIG Calculator Estimated Delivery Date Method Current WG Current Estimate 04/20/25 LMP (Certain) 26w 1d Other Estimates 04/20/25 Ultrasound #1 26w 1d Expected Delivery Route/Plan Labor Preferences- CB/BF classes: [...] in visit notes/problem list details Initial Weight: 255 lb Date -???-???-???-???-?? ?-???-???-???-???-? ??-???-???- EGA Weight BP Urine Prot -???-???-???-???-?? ?-???-???-???-???-? ??-???-???- Glucose FHR FuHt Pres Dilation -???-???-???-???-?? ?-???-???-???-???-? ??-???-???- Effaced St Visit Note 09/25/24 -???-???-???-???-?? ?-???-???-???-???-? ??-???-???- 10w 3d 255 lb (+0 oz) 139/85 -???-???-???-???-?? ?-???-???-???-???-? ??-???-???- 169 -???-???-???-???-?? ?-???-???-???-???-? ??-???-???- SM- CRL cons with LMP SM- CRL 3.5 cm cons with LMP 10/23/24 -???-???-???-???-?? ?-???-???-???-???-? ??-???-???- 14w 3d 258 lb 8 oz (+3 lb 8 oz) 116/68 Negative -???-???-???-???-?? ?-???-???-???-???-? ??-???-???- Negative 144 -???-???-???-???-?? ?-???-???-???-???-? ??-???-???- KW- no vb/cr amping. movement and fht on US. anatomy ordered with [facility] due to insurance. 11/17/24 -???-???-???-???-?? ?-???-???-???-???-? ??-???-???- 18w 0d 258 lb 6 oz (+3 lb 6 oz) 124/70 Negative -???-???-???-???-?? ?-???-???-???-???-? ??-???-???- Negative 143 -???-???-???-???-?? ?-???-???-???-???-? ??-???-???- MH-No VB. No flutters yet. Nausea improving. 12/15/24 -???-???-???-???-?? ?-???-???-???-???-? ??-???-???- 22w 0d 260 lb (+5 lb) 120/72 Negative -???-???-???-???-?? ?-???-???-???-???-? ??-???-???- Negative 152 -???-???-???-???-?? ?-???-???-???-???-? ??-???-???- (more content not included)... Normal [facility] Syphilis Antibodieson 2024 Syphilis Abs Non-Reactive Normal Nonreactive [facility] Comment on above: Performed By: #### L 100.0100, L501.0250, L509.8002, L3890.6006 #### [facility] [address] [place], [place], [address] Laboratory - Chemistry and C hemistry - challengeOrdered By: Jewels Ponce on 12-15-2024 Glucose Ql (U) Negative [facility] Laboratory - UrinalysisOrder ed By: Jewels Ponce on 12-15-2024 Protein Ql (U) Negative [facility] Public Records Researcher Office Visit Reporton 12-15-2024 Public Records Researcher Office Visit Report [facility]'s [address], [address] [place] [address] OFFICE VISIT Date of Service: 12/15/24 MR#: [id number] Acct: [id number] Name: AMIRA SULLIVAN Rep #: [id number] : 1995 Provider: JASVIR durham Age/Sex: 29/F Location: [facility] Status: Signed Intake Vital Signs 10/23/24 10:47 11/17/24 13:32 12/15/24 10:07 Height 5 ft 8 in 5 ft 8 in 5 ft 8 in Weight: 260 lb BMI 39.5 BP 120/72 Intake Visit Reasons: 22 wk ob Chief Complaint: 22 Week OB Skid Man Required: No Is patient in pain?: No Allergies No Known Allergies Allergy (Unverified 12/15/24 10:08) Medications ???Medication ???Instructions ???Recorded ???Confirmed ???Type PNV-iron 29 mg-folic acid 1 pkg PO 09/10/24 12/15/24 History il-extcv-4-dha 200 mg oral combo pack ondansetron HCl 4 mg tablet 4 mg PO Q4H #60 tabs 09/25/2407/11 Rx Last Menstrual Period: 07/14/24 Zika: Zika virus screening: Negative : Yes PFSH PFSH Medical History Asthma Family History Grandmother Breast cancer Aunt Thyroid disorder Social History adopted: No household members: significant other housing: house number of children: 0 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 anatomy ordered with [facility] due to insurance. 11/17/24 -???-???-???-???-?? ?-???-???-???-???-? ??-???-???- [...] Trimester: Abimael (more content not included)... Normal [facility] OB Anatomy w/ Transvaginalon 12-04-2024 OB Anatomy w/ Transvaginal [facility] Services [address] [place] [address] OB Anatomy w/ Transvaginal MR#: [id number] Acct: [id number] Name: AMIRA SULLIVAN Rep #: [id number] : 1995 F 29 From: Juma erickson MD PCP: Care Physician,No Primary Status: REG CLI Study: OB Anatomy w/ Transvaginal Date of Exam: 12/04 Exam# [id number] Ordering Dr: Jewels Ponce TRIMMER MEAT TRIMMER MEAT -C PROCEDURE: OB ANATOMY W/ TRANSVAGINAL 12/04/2024 REASON FOR EXAM: ANATOMY SCAN 18-20WKS TECHNIQUE: OB ANATOMY W/ TRANSVAGINAL COMPARISON: None [...] 19 weeks and 6 days. Reading Location: [id number] CC: JASVIR Ponce; No Primary Care Physician Application Performance Engineer: Signed Normal [facility] Laboratory - Chemistry and C hemistry - challengeOrdered By: Jewels Ponce on 11-17-2024 Glucose Ql (U) Negative [facility] Laboratory - UrinalysisOrder ed By: Jewels Ponce on 11-17-2024 Protein Ql (U) Negative [facility] Public Records Researcher Office Visit Reporton 11-17-2024 Public Records Researcher Office Visit Report [facility]'s [address], [address] [place] [address] OFFICE VISIT Date of Service: 11/17/24 MR#: [id number] Acct: [id number] Name: AMIRA SULLIVAN Rep #: [id number] : 1995 Provider: JASVIR durham Age/Sex: 28/F Location: [facility] Status: Signed Intake Vital Signs 09/25/24 10:22 10/23/24 10:47 11/17/24 13:32 Height 5 ft 8 in 5 ft 8 in 5 ft 8 in Weight: 258 lb 6 oz BMI 39.2 BP 124/70 H Intake Visit Reasons: 18 wk ob Chief Complaint: 18 Week OB Skid Man Required: No Is patient in pain?: No Allergies No Known Allergies Allergy (Unverified 11/17/24 13:30) Medications ???Medication ???Instructions ???Recorded ???Confirmed ???Type PNV-iron 29 mg-folic acid 1 pkg PO 09/10/24 11/17/24 History hk-xffwd-5-dha 200 mg oral combo pack ondansetron HCl 4 mg tablet 4 mg PO Q4H #60 tabs 09/25/2409/08 Rx Last Menstrual Period: 07/14/24 Zika: Zika virus screening: Negative : No PFSH PFSH Medical History Asthma Family History Grandmother Breast cancer Aunt Thyroid disorder Social History adopted: No household members: significant other housing: house number of children: 0 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 anatomy ordered with [facility] due to insurance. 11/17/24 -???-???-???-???-?? ?-???-???-???-???-? [...] Any med (more content not included)... Normal [facility] Laboratory - Chemistry and C hemistry - challengeOrdered By: Didi Luong on 10-23-2024 Glucose Ql (U) Negative [facility] Laboratory - UrinalysisOrder ed By: Didi Luong on 10-23-2024 Protein Ql (U) Negative [facility] Public Records Researcher Office Visit Reporton 10-23-2024 Public Records Researcher Office Visit Report [facility]'s [address], [address] [place] [address] OFFICE VISIT Date of Service: 10/23/24 MR#: [id number] Acct: [id number] Name: AMIRA SULLIVAN Rep #: [id number] : 1995 Provider: ELLI Moser ams Age/Sex: 28/F Location: [facility] Status: Signed Intake Vital Signs 09/25/24 10:22 10/23/24 10:47 Height 5 ft 8 in 5 ft 8 in Weight: 255 lb 258 lb 8 oz BMI 38.7 39.3 BP 139/85 H 116/68 Intake Visit Reasons: 14WK OB Chief Complaint: 14wk OB Skid Man Required: No Is patient in pain?: No Allergies No Known Allergies Allergy (Unverified 10/23/24 10:43) Medications ???Medication ???Instructions ???Recorded ???Confirmed ???Type PNV-iron 29 mg-folic acid 1 pkg PO 09/10/24 10/23/24 History zv-rbmnp-5-dha 200 mg oral combo pack ondansetron HCl [...] 0 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 anatomy ordered with [facility] due to insurance. ACOG First Trimester [...] as docu (more content not included)... Normal [facility] Absolute lymphocyte countOrd ered By: Audra Garcia on 10-08-2024 Lymphocytes Auto (Unsp spec) [#/Vol] 1.99 10*3/uL 0.83-4.51 [facility] Absolute neutrophil countOrd ered By: Audra Garcia on 04-24-2025 Neutrophils (Bld) [#/Vol] 6.6 10*3/uL 2.0-7.7 [facility] Automated lymphocyte count a s percentage of total leukocytesOrdered By: Audar Garcia on 10-08-2024 Lymphocytes/100 WBC Auto (Unsp spec) 21.6 % 19-41 [facility] Basophil percentageOrdered B y: Audra Garcia on 10-08-2024 Basophils/100 WBC (Bld) 0.3 % 0-1 [facility] CBC W/Diff, Automatedon 09-16-2024 Absolute Lymph 1.99 X10 3/uL Normal 0.83-4.51 [facility] Comment on above: Performed By: #### L 3890.6006, L3890.6102, L3890.6301, L501.9985, L900.0098, L100.0100, BTS, L509.4006, L509.8002 ####[facility] [address] [place], [address] Absolute Neut 6.6 X10 3/uL Normal 2.0-7.7 [facility] Comment on above: Performed By: #### L 3890.6006, L3890.6102, L3890.6301, L501.9985, L900.0098, L100.0100, BTS, L509.4006, L509.8002 ####[facility] [address] [place], [address] Basophils/100 WBC (Bld) 0.3 % Normal 0-1 [facility] Comment on above: Performed By: #### L 3890.6006, L3890.6102, L3890.6301, L501.9985, L900.0098, L100.0100, BTS, L509.4006, L509.8002 ####[facility] [address] [place], [address] Eosinophils/100 WBC (Bld) 0.8 % Normal 0-5 [facility] Comment on above: Performed By: #### L 3890.6006, L3890.6102, L3890.6301, L501.9985, L900.0098, L100.0100, BTS, L509.4006, L509.8002 ####[facility] [address] [place], [address] Erythrocyte distribution width (RBC) [Ratio] 13.1 % Normal 11.6-14.6 [facility] Comment on above: Performed By: #### L 3890.6006, L3890.6102, L3890.6301, L501.9985, L900.0098, L100.0100, BTS, L509.4006, L509.8002 ####[facility] [address] [place], [address] Hematocrit (Bld) [Volume fraction] 35.1 % Low 37-47 [facility] Comment on above: Performed By: #### L 3890.6006, L3890.6102, L3890.6301, L501.9985, L900.0098, L100.0100, BTS, L509.4006, L509.8002 ####[facility] [address] [place], [address] Hemoglobin (Bld) [Mass/Vol] 11.5 g/dL Low 12.0-15.0 [facility] Comment on above: Performed By: #### L 3890.6006, L3890.6102, L3890.6301, L501.9985, L900.0098, L100.0100, BTS, L509.4006, L509.8002 ####[facility] [address] [place], [address] IG% 0.300 Normal 0.0-0.9 [facility] Comment on above: Result Comment: IG% - Immature Granulocytes (promyelocytes, myelocytes and metamyelocytes) > 1% indicates that a LEFT SHIFT is Present. Performed By: #### L 3890.6006, L3890.6102, L3890.6301, L501.9985, L900.0098, L100.0100, BTS, L509.4006, L509.8002 ####[facility] [address] [place], [address] Lymphocytes/100 WBC (Bld) 21.6 % Normal 19-41 [facility] Comment on above: Performed By: #### L 3890.6006, L3890.6102, L3890.6301, L501.9985, L900.0098, L100.0100, BTS, L509.4006, L509.8002 ####[facility] [address] [place], [address] MCH (RBC) [Entitic mass] 29.8 pg Normal 27.0-32.0 [facility] Comment on above: Performed By: #### L 3890.6006, L3890.6102, L3890.6301, L501.9985, L900.0098, L100.0100, BTS, L509.4006, L509.8002 ####[facility] [address] [place], [address] MCHC (RBC) [Mass/Vol] 32.8 g/dL Normal 32-36 [facility] Comment on above: Performed By: #### L 3890.6006, L3890.6102, L3890.6301, L501.9985, L900.0098, L100.0100, BTS, L509.4006, L509.8002 ####[facility] [address] [place], [address] MCV (RBC) [Entitic vol] 90.9 fL Normal 81-99 [facility] Comment on above: Performed By: #### L 3890.6006, L3890.6102, L3890.6301, L501.9985, L900.0098, L100.0100, BTS, L509.4006, L509.8002 ####[facility] [address] [place], [address] Monocytes/100 WBC (Bld) 5.1 % Normal 0-10 [facility] Comment on above: Performed By: #### L 3890.6006, L3890.6102, L3890.6301, L501.9985, L900.0098, L100.0100, BTS, L509.4006, L509.8002 ####[facility] [address] [place], [address] Neutrophils/100 WBC (Bld) 71.9 % High 47-70 [facility] Comment on above: Performed By: #### L 3890.6006, L3890.6102, L3890.6301, L501.9985, L900.0098, L100.0100, BTS, L509.4006, L509.8002 ####[facility] [address] [place], [address] Nucleated RBC (Bld) [#/Vol] 0 10*3/uL Normal 0-5 [facility] Comment on above: Performed By: #### L 3890.6006, L3890.6102, L3890.6301, L501.9985, L900.0098, L100.0100, BTS, L509.4006, L509.8002 ####[facility] [address] [place], [address] Platelet mean volume (Bld) [Entitic vol] 9.5 fL Normal 6.2-12.0 [facility] Comment on above: Performed By: #### L 3890.6006, L3890.6102, L3890.6301, L501.9985, L900.0098, L100.0100, BTS, L509.4006, L509.8002 ####[facility] [address] [place], [address] Platelets (Bld) [#/Vol] 277 10*3/uL Normal 150-450 [facility] Comment on above: Performed By: #### L 3890.6006, L3890.6102, L3890.6301, L501.9985, L900.0098, L100.0100, BTS, L509.4006, L509.8002 ####[facility] [address] [place], [address] RBC (Bld) [#/Vol] 3.86 10*6/uL Low 4.2-5.4 [facility] Comment on above: Performed By: #### L 3890.6006, L3890.6102, L3890.6301, L501.9985, L900.0098, L100.0100, BTS, L509.4006, L509.8002 ####[facility] [address] [place], [address] RDW SD 42.8 fl Normal 35.1-43.9 [facility] Comment on above: Performed By: #### L 3890.6006, L3890.6102, L3890.6301, L501.9985, L900.0098, L100.0100, BTS, L509.4006, L509.8002 ####[facility] [address] [place], [address] WBC (Bld) [#/Vol] 9.2 10*3/uL Normal 4.4-11.0 [facility] Comment on above: Performed By: #### L 3890.6006, L3890.6102, L3890.6301, L501.9985, L900.0098, L100.0100, BTS, L509.4006, L509.8002 ####[facility] [address] [place], [place], [id number] Eosinophil percentageOrdered By: Audra Garcia on 10-08-2024 Eosinophils/100 WBC (Bld) 0.8 % 0-5 [facility] Erythrocyte distribution wid th ratioOrdered By: Audra Garcia on 10-08-2024 Erythrocyte distribution width (RBC) [Ratio] 13.1 % 11.6-14.6 [facility] Erythrocyte distribution wid th standard deviationOrdered By: Audra Garcia on 10-08-2024 Erythrocyte distribution width (RBC) [Ratio] 42.8 fl 35.1-43.9 [facility] HIVon 10-08-2024 HIV Non-Reactive Normal Nonreactive [facility] Comment on above: Result Comment: Non- Reactive Reactive Repeatedly reactive samples must be confirmed according to CDC recommended confirmatory algorithms. The subresults for either HIVAG or AHIV can be used as an aid in the selection of the confirmation algorithm for reactive samples. Send out specimens with Reactive results to [facility] for confirmation. Order the HIV antibody detection and differentiation: lc#[id number] Performed By: #### L 3890.6006, L3890.6102, L3890.6301, L501.9985, L900.0098, L100.0100, BTS, L509.4006, L509.8002 ####[facility] [address] [place], [place], [id number] Hematocrit Auto (Bld) [Volum e fraction]Ordered By: Audra Garciaparrish on 10-08-2024 Hematocrit (Bld) [Volume fraction] 35.1 % Low 37-47 [facility] Hemoglobin A1con 10-08-2024 HbA1c (Bld) [Mass fraction] 5.1 % Normal <=5.6 [facility] Comment on above: Result Comment: Norm al < 5.7 % Prediabetic 5.7 - 6.4 % Diabetic >or= 6.5 % Please note range changes. Performed By: #### L 3890.6006, L3890.6102, L3890.6301, L501.9985, L900.0098, L100.0100, BTS, L509.4006, L509.8002 ####[facility] [address] [place], [place], [id number] Hemoglobin A1c percentageOrd ered By: Audra Garcia on 10-08-2024 HbA1c (Bld) [Mass fraction] 5.1 % <5.7 [facility] Comment on above: Normal < 5.7 % Predi abetic 5.7 - 6.4 % Diabetic >or= 6.5 % Please note range changes. Hemoglobin measurementOrdere d By: Audra Garcia on 10-08-2024 Hemoglobin (Bld) [Mass/Vol] 11.5 g/dL Low 12.0-15.0 [facility] Hepatitis C Antibodyon 10-08 Hepatitis C Ab Non-Reactive Normal Nonreactive [facility] Comment on above: Result Comment: Reac tive: Presumptive evidence of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
[2025-01-15 07:21] LABS: Glucose GTT-Gestation. Fasting 84 mg/dL (<105)
[2025-01-15 09:45] LABS: Glucose GTT-Gestational 1 Hr 161 mg/dL (<190)
[2025-01-15 11:29] LABS: Glucose GTT-Gestational 2 Hr 184 mg/dL (<165)
[2025-01-15 11:58] LABS: Glucose GTT-Gestational 3 Hr 144 L (<145)
== END | disposition home or self-care (01) ==
LOC: LAB 06:38
PROVIDERS: Referring Provider Nurse Practitioner Women's Health; Visit Provider Nurse Practitioner Women's Health
DX: Z13.1 Encounter for screening for diabetes mellitus (principal)
CPT/HCPCS: 36415; 82951; 82952

== ENCOUNTER 2025-02-11 10:30 | Outpatient (RCR) | payer OTHER, SELFPAY | END 2025-02-14 23:59 | LOC: NS 10:30 | PROVIDERS: Referring Provider Nurse Practitioner Women's Health; Visit Provider Nurse Practitioner Women's Health | DX: O24.419 Gestational diabetes mellitus in pregnancy, unspecified control (principal) | CPT/HCPCS: 97802 ==

== ENCOUNTER 2025-03-23 08:52 | Outpatient (CLI) | payer OTHER, SELFPAY | END 2025-03-23 11:57 | disposition home or self-care (01) | LOC: OPUS 09:05 → WPOUT 11:31 → WP 11:31 | PROVIDERS: Referring Provider Obstetrics & Gynecology; Visit Provider Obstetrics & Gynecology | DX: O24.410 Gestational diabetes mellitus in pregnancy, diet controlled (principal); Z3A.00 Weeks of gestation of pregnancy not specified | CPT/HCPCS: 76816; 96158 ==

== ENCOUNTER → 2025-03-23 | Outpatient (CLI) | payer OTHER, SELFPAY | END | disposition home or self-care (01) | LOC: LABSPEC 16:02 | PROVIDERS: Visit Provider Obstetrics & Gynecology | DX: O09.92 Supervision of high risk pregnancy, unspecified, second trimester (principal); Z3A.00 Weeks of gestation of pregnancy not specified | CPT/HCPCS: 87081 ==

== ENCOUNTER 2025-03-30 10:50 | Outpatient (CLI) | payer OTHER, SELFPAY ==
[2025-03-30] VITALS (8 sets, daily range): BP systolic 111–135; BP diastolic 68–75; PULSE 81–113; RESP 16; TEMP 37.2; O2SAT 81–95; BMI 42.2
[2025-03-30 11:51] LABS: Hematocrit 37.0 % (37-47); Hemoglobin 12.2 g/dL (12.0-15.0); Mean Corp Hgb Conc 33.0 g/dL (32-36); Mean Corpuscular Volume 92.0 fL (81-99); Mean Platelet Vol. 10.9 fl (6.2-12.0); POSITIVE COUNT YES; RBC Distribution Width CV 12.8 % (11.6-14.6); RBC Distribution Width SD 42.1 fl (35.1-43.9); Red Blood Count 4.02 M/mm3 (4.2-5.4); White Blood Count 10.8 K/mm3 (4.4-11.0)
[2025-03-30 11:58] LABS: Creatinine, Urine (random) 63.80 mg/dL (28.00-217.00); Protein, Urine (Random) 68.6 mg/dL (0.0-12.0); Protein:Creat Ratio 1075 mg/g CRE (0-200)
[2025-03-30 12:13] LABS: Scan Indicated on CBC? Y/N YES- FLAGS NOTED
[2025-03-30 12:51] LABS: AST(SGOT) 30 U/L (<=31); Alanine Aminotransfer ALT/SGPT 23 U/L (<=34); Estimated Creatinine Clearance 219.23 ml/min (50-250)
[2025-03-30 13:12] LABS: Uric Acid 4.0 mg/dL (2.6-6.0)
[2025-03-30] MEDS: 0.9% Saline Lock 10 ML Syringe IV (13:18)
[2025-03-30 13:36] LABS: Platelet Count 277 K/mm3 (150-450)
--- NOTE | 2025-03-30 14:02 | OB.TRI.PN ---
Progress Notes Date of Service: 03/30/25 Progress Note: Patient presents for triage evaluation secondary to proteinuria FHT: 130 Moderate variability reactive no decelerations category I tracing [place]: no regular Contractions Assessment and plan: 37 weeks proteinuria nl bps here Reactive NST, reassuring maternal and status patient discharged to home to follow-up in office, plan home bp monitoring call if elevated or any neuro symptoms. See problem list details for additional plan information. Laboratory Studies: Laboratory Tests 03/30/25 03/30/25 03/30/25 Range/Units 13:15 11:40 10:40 WBC 10.8 (4.4-11.0) K/mm3 RBC 4.02 L (4.2-5.4) M/mm3 Hgb 12.2 (12.0-15.0) g/dL Hct 37.0 (37-47) % MCV 92.0 (81-99) fL MCH 30.3 (27.0-32.0) pg MCHC 33.0 (32-36) g/dL RDW Std Deviation 42.1 (35.1-43.9) fl RDW Coeff of Jude 12.8 (11.6-14.6) % Plt Count 277 TNP MPV 10.9 (6.2-12.0) fl Differential Comment COMMENT Creatinine 0.54 L (0.70-1.20) mg/dL Estim Creat Clear Calc 219.23 (50-250) ml/min Est GFR (MDRD) Non-Af 130 (>60) Uric Acid 4.0 (2.6-6.0) mg/dL AST 30 (<=31) U/L ALT 23 (<=34) U/L U Random Total Protein 68.6 H (0.0-12.0) mg/dL Urine Creatinine 63.80 (28.00-217.00) mg/dL Protein/Creatinin Ratio 1075 H (0-200) mg/g CRE Charges/Coding Procedures Urinary/Genital 52xxx-59xxx: [id number] non-stress test Interp
[2025-03-30 15:03] LABS: Syphilis Antibodies Nonreactive (Nonreactive)
== END 2025-03-30 14:11 | disposition home or self-care (01) ==
LOC: WPOUT 10:55 → WP 10:55
PROVIDERS: Referring Provider Obstetrics & Gynecology; Visit Provider Obstetrics & Gynecology
DX: O12.13 Gestational proteinuria, third trimester (principal); Z3A.37 37 weeks gestation of pregnancy
CPT/HCPCS: 82565; 82570; 84156; 84450; 84460; 84550; 85027; 85049; 86780; 86850; 86900; 86901; A4216

== ENCOUNTER 2025-04-13 05:20 | Inpatient (IN) | payer OTHER, SELFPAY ==
[2025-04-13] VITALS (16 sets, daily range): BP systolic 85–132; BP diastolic 43–77; PULSE 61–95; RESP 14–16; TEMP 36.2–37.1; O2SAT 96–98; BMI 42.7
--- NOTE | 2025-04-13 | FALS_PTH ---
PATIENT: FADY SULLIVAN LOC: WP U#:[id number] AGE/SX: 29/ ROOM: WP007 RE04/13/[address]: Dr. Rafaela Barksdale DO : 1995 BED: 1 DIS: 04/16/2025 SPEC #: [id number] RECD: 04/13/25 08:00 STATUS: SARAHY TERRA #: [id number] MARILIN: 04/13/25 00:[address]: Rafaela Barksdale DEPT: SURGICAL PATHOLOGY RECD BY: Harley Oropeza ENTERED: 04/15/25 12:29 SP TYPE: FALL TUBES OTHR DR: Lindsay Primary Care Phys Tissues: A - Fallopian tube Procedures: Surgery Specimen Level II HEADER OPERATION: Repeat section PRE-OP DIAGNOSIS: Mass on fallopian tube TISSUE SUBMITTED: A- Fallopian tube mass MICROSCOPIC DIAGNOSIS A. Fallopian tube, repeat section: MICROSCOPIC DESCRIPTION Slides are reviewed. GROSS DESCRIPTION A. Received fresh and subsequently placed in formalin labeled with the patient's name and date of . Designated as L fallopian tube mass is a 3.0 x 1.7 x 1.3 cm calloway-purple, disc ended fallopian tube segment devoid of orientation or fimbria. The external surfaces are inked green. Sectioning reveals a markedly dilated lumen containing calloway-white, firm and glistening material. Entirely submitted in 5 cassettes. [place] 04/15/2025 CPT:30567
[2025-04-13] MEDS: Lactated Ringers 1,000 ML 999 ML IV (05:55)
[2025-04-13 06:12] LABS: Hematocrit 34.5 % (37-47); Hemoglobin 11.6 g/dL (12.0-15.0); Immature Granulocytes Count 0.040 X10^3/uL (0.0-0.0); Mean Corp Hgb Conc 33.6 g/dL (32-36); Mean Corpuscular Volume 93.2 fL (81-99); Mean Platelet Vol. 9.8 fl (6.2-12.0); NRBC Flagged by Analyzer 0 % (0-5); Platelet Count 252 K/mm3 (150-450); RBC Distribution Width CV 12.7 % (11.6-14.6); RBC Distribution Width SD 43.5 fl (35.1-43.9); Red Blood Count 3.70 M/mm3 (4.2-5.4); White Blood Count 10.9 K/mm3 (4.4-11.0)
[2025-04-13 06:50] LABS: Syphilis Antibodies Nonreactive (Nonreactive)
[2025-04-13] MEDS: Lactated Ringers 1,000 ML 150 ML IV (07:10)
[2025-04-13] MEDS: Lactated Ringers 1,000 ML 1000 ML IV (07:18)
[2025-04-13] MEDS: Cefazolin 1 GM/5 ML Vial 3 GM IV (07:18)
--- NOTE | 2025-04-13 07:21 | PCM.HP.OB ---
HPI - General General Date of Admission: 04/13/25 HPI Narrative FADY SULLIVAN, is a 29 y/o @ 39 weeks who presents to L&D for primary section for breech presentation. She declines ECV. she also has gesteational diabetes and baby is expeted to be 8-9 pounds Maternal Data Information KRAIG Calculator Estimated Delivery Date Method Current WG Current Estimate 04/20/25 LMP (Certain) 39w 0d Other Estimates 04/20/25 [facility]d [facility] History (Updated 04/13/25 @ 05:51 by Conrado Pitts) macrosomia Anxiety Obesity Former smoker Gestational diabetes Asthma Home Medications ?Medication ?Instructions ?Recorded ?Last Taken ?Type blood sugar diagnostic (Blood #120 ea 01/18/25 Unknown Rx Glucose Test strips) blood-glucose meter #1 ea 01/18/25 Unknown Rx lancets #200 ea 01/18/25 Unknown Rx vits 75-iron 28 mg-folic 1 pkg PO DAILY 03/30/25 04/12/25 08:00 History acid 800 mcg-omega-3 oral combo pack (One A Day Women's DHA) Allergy/AdvReac Type Severity Reaction Status Date / Time No Known Allergies Allergy Verified 04/13/25 05:39 Family History Grandmother Breast cancer Aunt Thyroid disorder Social History adopted: No household members: significant other housing: house number of children: 0 current occupational status: employed 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 pets and animals: Yes pets and animals: cat(s) and dog(s) history of recent travel: No sexually active: Yes Smoking Status: Former smoker quit date: 06/17/24 Tobacco: How many years used: 4 Smokeless tobacco user: other second hand exposure: No alcohol intake: never substance use type: does not use diet: lactose free well-balanced diet: about half the time caffeine: No during the past year weight has: increased > 10 lbs what type of physical activity do you participate in: walking and other details: ballet frequency: 1-2 times per week seatbelt use: always do you feel safe at home: Yes additional social history: Leonides - 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 vet, [employer] currently History 1 Elective abortions Hx Para 0 Spontaneous abortions Hx # Term Pregnancies Ectopic pregnancies Hx # Pregnancies Multiple births # of living children Visit Details Expected Delivery Route/Plan Labor Preferences- CB/BF classes: encouraged labor support person: Leonides labor intervention preferences: [] pain management options preferred: limited, ok with epidural cut cord/dad catch: cord : yes PP control planned: discussed discussed possible routes of delivery and associated risks: [] special requests: [] Plans Covid status: Flu vaccine: [] Tdap vaccine: given Rhogam: na LARC form signed: yes movement and labor precautions reviewed. Problem list reviewed and updated with the most current plan of care details and appropriate orders placed. Relevant counseling for the gestational age provided. Continue routine care and follow up unless otherwise noted in visit notes/problem list details OB Flowsheet Initial Weight: 255 lb Date <del>?</del> EGA Weight BP Urine Prot <del>?</del> Glucose FHR FuHt Pres Dilation <del>?</del> Effaced St Visit Note 09/25/24 <del>?</del> 10w 3d 255 lb (+0 oz) 139/85 <del>?</del> 169 <del>?</del> SM- CRL cons with LMP SM- CRL 3.5 cm cons with LMP 10/23/24 <del>?</del> 14w 3d 258 lb 8 oz (+3 lb 8 oz) 116/68 Negative <del>?</del> Negative 144 <del>?</del> KW- no vb/cramping. movement and fht on US. anatomy ordered with [facility] due to insurance. 11/17/24 <del>?</del> 18w 0d 258 lb 6 oz (+3 lb 6 oz) 124/70 Negative <del>?</del> Negative 143 <del>?</del> MH-No VB. No flutters yet. Nausea improving. 12/15/24 <del>?</del> 22w 0d 260 lb (+5 lb) 120/72 Negative <del>?</del> Negative 152 <del>?</del> MH-No VB. Good FM. Larc 01/13/25 <del>?</del> 26w 1d 265 lb 6 oz (+10 lb 6 oz) 113/73 Negative <del>?</del> Negative 150 <del>?</del> JV- glucola done today. pt expresses concern for cleft lip or palate. She states that they were unable to see the face on the anatomy scan and the FOB has a family history of cleft lip. plan to order mfm ultrasound to complete the anatomy assessment. start nsts at 34 weeks weekly 01/25/25 <del>?</del> 27w 6d 262 lb 5 oz (+7 lb 5 oz) 119/79 <del>?</del> 145 <del>?</del> SM- no vb lof good fm no reuglar ctx SM- no vb lof good fm no reuglar ctx ntritionist scheduled and bs reviewed 02/10/25 <del>?</del> 30w 1d 265 lb 5 oz (+10 lb 5 oz) 115/70 Negative <del>?</del> Negative 142 31 <del>?</del> MH-No VB, LOF. Good FM. BS well controlled. Sees dietitian tomorrow. Tdap given. 02/23/25 <del>?</del> 32w 0d 267 lb 9 oz (+12 lb 9 oz) 119/78 Negative <del>?</del> Negative 140 33 <del>?</del> SM- no vb lof good fm no regular ctx bs well controlled. 03/10/25 <del>?</del> 34w 1d 270 lb (+15 lb) 116/74 Negative <del>?</del> Negative 130 <del>?</del> SM- no vb lof good fm no regular ctx 03/16/25 <del>?</del> 35w 0d 272 lb 5 oz (+17 lb 5 oz) 124/85 Trace <del>?</del> Negative 140 <del>?</del> JV- nst reactive. Has growth scan next week. glucose log reviewed. 03/23/25 <del>?</del> 36w 0d 274 lb 8 oz (+19 lb 8 oz) 133/87 Negative <del>?</del> Negative 140 <del>?</del> JV- normal glucose log. baby is breech today, HC is 99th%. pt declines version. requesting primary section if not turned at 39 weeks. 03/30/25 <del>?</del> 37w 0d 277 lb (+22 lb) 144/83 122/83 1+ <del>?</del> Negative 140 <del>?</del> SM- no vb lof good fm n oregulr ctx patient has had nausea and feeling pressure, just not feeling well 04/06/25 <del>?</del> 38w 0d 280 lb 1 oz (+25 lb 1 oz) 137/84 Negative <del>?</del> Negative 140 Breech <del>?</del> JV- bp well controlled. nst reactive. planning rpt section ROS Constitutional Constitutional: Denies change in weight, fatigue, fever(s), headache(s), poor appetite or weakness Eyes Eyes: Denies blurry vision, change in vision, seeing flashes or spots in vision ENT HEENT: Denies dizziness, headache(s), loss taste/smell or sore throat Cardiovascular Cardiovascular: Denies chest pain, dizziness, dyspnea, irregular heart rhythm, leg edema, palpitations, rapid heart rate or vomiting Respiratory/Chest Respiratory/Chest: Denies chest tightness, cough, dyspnea or breast pain Gastrointestinal Gastrointestinal: Denies abdominal pain, anorexia, constipation, cramping, diarrhea, hemorrhoids, vomiting or weight changes Genitourinary Genitourinary: Denies dysuria, flank pain, genital lesions, genital pain, urinary frequency or urinary urgency Musculoskeletal Musculoskeletal: Denies back pain, difficulty walking, joint pain, limited range of motion, muscle cramps or numbness Integumentary Integumentary: Denies lesions or unusual bruising Neurologic Neurologic: Denies abnormal movements, abnormal speech, dizziness, numbness, seizure-like activity or syncope Psychiatric Psychiatric: Denies anxiety, behavioral changes, change in appetite, change in libido, cognitive impairment, confusion, depression, difficulty concentrating, hallucinations or suicidal thoughts Endocrine Endocrinology: Denies excessive sweating, polydipsia or polyuria Hematologic/Lymphatic Hematologic/Lymphatic: Denies easy bleeding, easy bruising or lymphadenopathy Allergic/Immunologic Allergic/Immunologic: Denies itchy eyes, lip swelling, seasonal rhinorrhea, rhinitis, throat swelling, tongue swelling, eczemia, wheezing or asthma Vital Signs Vital Signs Vital Signs: 04/13/25 05:33 04/13/25 05:33 04/13/25 05:33 Temperature Temperature Source Temporal Pulse Rate 87 Respiratory Rate Blood Pressure 132/77 H Blood Pressure Mean BP Systolic 132 BP Diastolic 77 Blood Pressure Source Blood Pressure Position Blood Pressure Location Pulse Ox Oxygen Delivery Method 04/13/25 05:33 04/13/25 05:33 04/13/25 05:33 Temperature 97.7 F L Temperature Source Pulse Rate Respiratory Rate 15 Blood Pressure Blood Pressure Mean BP Systolic BP Diastolic Blood Pressure Source Blood Pressure Position Blood Pressure Location Pulse Ox 97 Oxygen Delivery Method 04/13/25 05:52 Temperature 97.7 F L Temperature Source Temporal Pulse Rate 87 Respiratory Rate 15 Blood Pressure 132/77 H Blood Pressure Mean 95 BP Systolic BP Diastolic Blood Pressure Source Monitor Blood Pressure Position Semi-Fowlers Blood Pressure Location Right Arm Pulse Ox 97 Oxygen Delivery Method Room Air Weight Weight: 281 lb 8 oz Body Mass Index (BMI) 42.7 Physical Exam Const alert, oriented x3, no apparent distress and healthy appearing General Appearance: cooperative; Negative for anxious HEENT normocephalic Face and Sinus: normal facial exam Eyes EOMs intact bilaterally and no scleral icterus General Eye: normal appearance of both eyes Neck full ROM and supple Lymph Lymphatic: no lymphadenopathy noted Resp normal respiratory effort Effort and Inspection: able to speak in complete sentences Cardio regular rate GI soft to palpation and non-tender Inspection: gravid Palpation: soft; Negative for tender Back/Spine no CVA tenderness Extremity normal to inspection, full ROM and no clubbing, cyanosis or edema General Extremity: Negative for calf tenderness or edema Skin Lesions: no lesions Rashes: no rashes Psych mental status grossly normal Labs Labs Labs: Blood Type O POSITIVE Antibody Screen NEGATIVE Hct, (37-47) 34.5 % L Hgb, (12.0-15.0) 11.6 g/dL L Pap Smear Negative Obstetrics Ultrasound Syphilis Total Ab, (Nonreactive) Nonreactive Rubella IgG Antibody, (Nonreactive) REAC Hep Bs Antigen, (Nonreactive) Nonreactive Hepatitis C Antibody, (Nonreactive) Nonreactive Chlamydia DNA (MELANIA), (Negative) Negative N.gonorrhoeae DNA (MELANIA), (Negative) Negative HIV 1&2 Antibody, (Nonreactive) Nonreactive Glucose 1 Hr 50 gm, (70-140) 152 mg/dL H Gest Glucose Tolerance mg/dL Assessment & Plan (1) Proteinuria affecting : COMMENT: home bps, recommend weekly nst and delivery if develops elevated bps or neuro symptoms (2) Breech presentation: COMMENT: persists at 36 wk US. Growth EFW 55%, AC 68%. C/S 04/13 JV. (3) Gestational diabetes mellitus (GDM): QUALIFIERS: Gestational diabetes mellitus control: diet-controlled Trimester: third trimester Qualified Code(s): O24.410 - Gestational diabetes mellitus in , diet controlled COMMENT: test fasting & 2 hr PP, nutrition consult; growth US 36wk. (4) Supervision of high-risk : QUALIFIERS: Trimester: second trimester Qualified Code(s): O09.92 - Supervision of high risk , unspecified, second trimester COMMENT: PRR,, KRAIG 04/20, girl Vika Coyle (5) Obesity affecting : QUALIFIERS: Trimester: second trimester Obesity type affecting : unspecified obesity Qualified Code(s): O99.212 - Obesity complicating , second trimester COMMENT: BMI 39 (pre-) 45 at her 26 week visit- start weekly nsts at 34 weeks (6) : QUALIFIERS: Weeks of gestation: 38 weeks Qualified Code(s): Z3A.38 - 38 weeks gestation of COMMENT: elects NIPT w gender & carrier, anatomy nl. PLAN: Plan After discussing the patient's diagnosis and treatment plan options, patient wishes to proceed with surgical management. I have discussed with the patient the risks, benefits, and alternatives of the procedure which include but are not limited to risks of anesthesia, bleeding, infection, possible damage to bowel, bladder, or surrounding vasculature which could lead to additional surgery to evaluate any complications. Patient agrees to procedure and wishes to proceed. ACOG/uptodate references given for additional information regarding procedure.
--- NOTE | 2025-04-13 08:31 | EX.PCM.OBRPT ---
Assessment & Plan (1) Proteinuria affecting : COMMENT: home bps, recommend weekly nst and delivery if develops elevated bps or neuro symptoms (2) Breech presentation: COMMENT: persists at 36 wk US. Growth EFW 55%, AC 68%. C/S 04/13 JV. (3) Gestational diabetes mellitus (GDM): QUALIFIERS: Gestational diabetes mellitus control: diet-controlled Trimester: third trimester Qualified Code(s): O24.410 - Gestational diabetes mellitus in , diet controlled COMMENT: test fasting & 2 hr PP, nutrition consult; growth US 36wk. (4) Supervision of high-risk : QUALIFIERS: Trimester: second trimester Qualified Code(s): O09.92 - Supervision of high risk , unspecified, second trimester COMMENT: PRR,, KRAIG 04/20, girl Vika Coyle (5) Obesity affecting : QUALIFIERS: Trimester: second trimester Obesity type affecting : unspecified obesity Qualified Code(s): O99.212 - Obesity complicating , second trimester COMMENT: BMI 39 (pre-) 45 at her 26 week visit- start weekly nsts at 34 weeks Maternal Data Information KRAIG Calculator Estimated Delivery Date Method Current WG Current Estimate 04/20/25 LMP (Certain) 39w 0d Other Estimates 04/20/25 Ultrasound #1 39w 0d Final KRAIG: 04/20/25 Final KRAIG Source: LMP Gestational age: 39 weeks 0 days Operative Report (OB) Procedure Details Date of Procedure: 04/13/25 Procedure Start Time: 07:41 Time of Delivery: 07:50 Pre-Operative Diagnosis: Breech Post-Operative Diagnosis: Same as Pre-operative diagnosis Classification: Scheduled Type of Anesthesia: Spinal Antibiotic Given: Ancef 3 grams IV x1 Drain: Cates to straight drain Estimated Blood Loss: 800cc Findings Description of surgery: The patient is a 29 y/o @ 39 weeks 0 days presented for primary for breech presentation . Spinal anesthesia was placed without difficulty. Cates catheter was placed. The patient was placed in the dorsal supine position with leftward tilt. Patient was prepped and draped in the normal sterile fashion. Pfannenstiel skin incision was made with the scalpel and carried through to the underlying layer of fascia with the scalpel. Fascia was nicked in the midline and the incision extended laterally. The rectus bellies were dissected off superiorly and inferiorly with out complication both sharply and bluntly. The peritoneum was entered digitally. The incision was stretched and a low transverse uterine incision was made with the scalpel. The 's buttocks were grasped and delivered through the uterine incision with legs flexed followed by the rest of the body. The anterior arm was swept across the chest and the was turned to the opposite side to deliver the opposite arm in the same fashion. A loose nuchal cord was noted. The head was delivered atraumatically. The cord was clamped and cut and the infant was handed off to awaiting nurse. The placenta was delivered spontaneously immediately following and was noted to be intact and have a three-vessel cord. The uterus was exteriorized cleared of all clots and debris, and the incision was closed in a double layer closure using #1 Monocryl. The ovaries and right fallopian tubes was noted to be within normal limits. There was a mucinous appearing mass on the left fallopian tube. With the patietn's permission the mass was excised using the ligasure device. Mucinous material expelled slightly. This was passed off for pathology analysis The uterus was returned to the maternal abdomen and gutters were cleared of all clots and debris. The peritoneum was closed with 3-0 Monocryl in a running fashion. Gloves were changed prior to fascial closure. Fascia was closed with 0 PDS in a running fashion. Subcutaneous tissue was copiously irrigated and the skin was closed with 3-0 Monocryl in a subcuticular fashion. Mepilex dressing was applied without complication. Patient was taken to recovery in stable condition. It was discussed with the patient that based on the clinical information obtained during this encounter, combined with her history, at this time I would recommend [ ] for future deliveries if further pregnancies are desired. Surgical findings: left fallopian tube cyst. viable femal infant willian Presentation: Tobin Breech Amniotic Membrane Rupture Type: Artificial Amniotic Fluid Description: Clear Placental Delivery Description: Manual Removal Placenta Disposition: [facility] Specimen collected: Yes Description of specimen(s) removed: fallopian tube cyst Cord Vessel Description: 3 Vessels Cord Entanglement: Around neck x 1, loose Nuchal Cord Compression: Without compression Infant A gender: Female (1 minute): 8 (5 minute): 9 Delayed Cord Clamping: Yes Kaiako Kohanga Reo manga artist: Yes Bucket Hooker: Veronica Dave Tasks completed by assistant fitness manager: Closing and Retracting Additional title assistant?: No Complications Complications: No Multi Select Codes Urinary/Genital Urinary/Genital CPT Codes: 07972 Delivery [facility]
[2025-04-13] MEDS: Oxytocin 15 Units/NS 250ml 15 UNITS/250 ML IV.SOLN 83 UNITS IV (08:50)
[2025-04-13] MEDS: Ketorolac 30 MG/ML Syringe IV ×3 (09:09→20:48)
--- NOTE | 2025-04-13 10:21 | DCINST_ITS ---
Discharge Instructions
--- NOTE | 2025-04-13 10:21 | PCM.DC ---
Discharge Instructions DC O2, CPAP, BIPAP needs Home O2 Discharge instructions: No Dressing / Incision Discharge Activity: May Not Drive (for 2 weeks or while taking narcotic pain medications.), May Shower and May Take a Tub Bath (in 7 days.) May resume sexual activity in: 4-6 weeks Weight Bearing Status: Full weight bearing Lifting Restrictions: 20 pounds Dressing / Incision Call your doctor if your incision/area has: Continuous Slow Oozing, Sudden Increased Bleeding, Increased Pain/ Swelling, Increased Redness and Foul Smelling Discharge Call your doctor if you observe: Fever of 101 or Higher and Using more than 1 pad per hour Suture Line Care: Avoid Pulling/Pushing and Avoid Pinching/Bending Cleanse incision/area with: Soap & Water and Keep Dressing Clean & Dry Follow Up Care Please Follow Up With: Rafaela Barksdale DO When: Call [phone] to make an appointment for an incision check in 1-2 weeks. Test Results: Test results from this visit will be discussed in further detail at your follow-up appointment, if applicable. Discharge Plan Admission Admit Date/Time: 04/13/25 05:20 Primary Reason for Your Visit: Attending Provider: Rafaela Barksdale Primary Care Provider: Care Physician,Lindsay Primary Discharge Orders/Prescriptions Prescriptions: New ibuprofen 800 mg tablet 800 mg PO Q8H PRN (Reason: pain) Qty: 30 0RF oxycodone-acetaminophen [Percocet] 5-325 mg tablet 1 tab PO Q4H PRN (Reason: pain) 7 Days Qty: 20 0RF Continued One A Day Women's DHA 28 mg iron- 800 mcg combo pack 1 pkg PO DAILY Patient Comments: takes one tablet a day (DME) Blood Glucose Test Strip See Rx Instructions .MEDSUPPLY Qty: 120 5RF Rx Instructions: As directed-fasting & 2 hr post meals (DME) blood-glucose meter Misc See Rx Instructions .MEDSUPPLY Qty: 1 0RF Rx Instructions: As directed- Test fasting and 2 hours after meals (DME) lancets Misc See Rx Instructions .MEDSUPPLY Qty: 200 5RF Rx Instructions: As directed-fasting & 2 hr post meals Referrals / Follow Up: Care Physician,No Primary [Primary Care Provider, Medical]
[2025-04-13] MEDS: Senna/Docusate Sodium 1 Tablet PO (11:45)
[2025-04-13] MEDS: Lactated Ringers 1,000 ML 100 ML IV (11:52)
[2025-04-13] MEDS: 0.9% Saline Lock 10 ML Syringe IV ×2 (15:26→17:53)
[2025-04-14 00:12] VITALS: BP 129/63; PULSE 86; RESP 16; TEMP 36.6; O2SAT 97
[2025-04-14 04:00] VITALS: BP 131/59; PULSE 85; RESP 16; TEMP 36.6; O2SAT 98
[2025-04-14] MEDS: Ketorolac 30 MG/ML Syringe IV (04:24)
[2025-04-14 06:43] LABS: Hematocrit 32.0 % (37-47); Hemoglobin 10.4 g/dL (12.0-15.0); Mean Corp Hgb Conc 32.5 g/dL (32-36); Mean Corpuscular Volume 93.6 fL (81-99); Mean Platelet Vol. 9.9 fl (6.2-12.0); Platelet Count 191 K/mm3 (150-450); RBC Distribution Width CV 13.0 % (11.6-14.6); RBC Distribution Width SD 44.3 fl (35.1-43.9); Red Blood Count 3.42 M/mm3 (4.2-5.4); White Blood Count 8.0 K/mm3 (4.4-11.0)
--- NOTE | 2025-04-14 07:47 | PCM.PN.OB ---
Subjective Subjective Patient doing well without complaints. Tolerating PO. Ambulating and voiding without difficulty. Feeding well. Denies chest pain, shortness of breath, calf pain/swelling, fevers, chills, lightheadedness. Objective Data Objective Data Vital Signs: Vital Signs Temp Pulse Resp BP Pulse Ox O2 Del Method 98 F 85 16 131/59 H 98 Room Air 04/14/25 04:00 04/14/25 04:00 04/14/25 04:00 04/14/25 04:00 04/14/25 04:00 04/14/25 04:00 Oxygen Delivery Method Room Air Weight: 281 lb 8 oz Body Mass Index (BMI) 42.7 Intake & Output: Intake and Output for Last 24 Hours 04/12/25 04/13/25 04/14/25 23:59 23:59 23:59 Intake Total 2663.33 / 2663.33 Output Total 1850 / 1850 Balance 813.33 / 813.33 Lab / Micro Data 04/14/25 06:35 Labs: Laboratory Results - last 24 hr 04/13/25 09:42: POC Glucose 90 04/14/25 06:16: POC Glucose 98 04/14/25 06:35: WBC 8.0, RBC 3.42 L, Hgb 10.4 L, Hct 32.0 L, MCV 93.6, MCH 30.4, MCHC 32.5, RDW Std Deviation 44.3 H, RDW Coeff of Jude 13.0, Plt Count 191, MPV 9.9 ROS Constitutional Constitutional: Reports systems reviewed and no addt'l complaints, except as documented Cardiovascular Cardiovascular: Reports as per HPI Respiratory/Chest Respiratory/Chest: Reports as per HPI Genitourinary Genitourinary: Reports as per HPI Physical Exam Const alert and oriented x3 HEENT normocephalic Eyes PERRL Neck full ROM Resp normal respiratory effort GI soft to palpation GI Narrative: FF below U. Dressing dry and intact Palpation: tender other (appropriately) Assessment & Plan (1) Status post section: COMMENT: Breech- willian- jV 04/13/25 (2) Gestational diabetes mellitus (GDM): QUALIFIERS: Gestational diabetes mellitus control: diet-controlled Trimester: third trimester Qualified Code(s): O24.410 - Gestational diabetes mellitus in , diet controlled COMMENT: test fasting & 2 hr PP, nutrition consult; growth US 36wk. PLAN: Plan s/p LTCS PPD # 1 1. routine post care 2. breast feeding- support given 3. rh positive 4. rubella immune 5. glucose stable
[2025-04-14 08:05] VITALS: BP 132/69; PULSE 82; RESP 14; TEMP 36.7; O2SAT 98
[2025-04-14 14:05] VITALS: BP 126/61; PULSE 92; RESP 16; TEMP 36.3; O2SAT 99
[2025-04-14] MEDS: FLU VACCINE 2025-26(6MOS UP) 45 MCG/0.5 ML SYRINGE IM (16:51)
[2025-04-14 20:57] VITALS: BP 125/46; PULSE 83; RESP 16; TEMP 36.6; O2SAT 99
[2025-04-15 02:46] VITALS: BP 116/73; PULSE 92; RESP 16; TEMP 36.7; O2SAT 98
--- NOTE | 2025-04-15 07:33 | PCM.PN.OB ---
Subjective Subjective Patient doing well without complaints. Tolerating PO. Ambulating and voiding without difficulty. feeding well. Denies chest pain, shortness of breath, calf pain/swelling, fevers, chills, lightheadedness. Objective Data Objective Data Vital Signs: Vital Signs Temp Pulse Resp BP Pulse Ox O2 Del Method 98.1 F 92 16 116/73 98 Room Air 04/15/25 02:46 04/15/25 02:46 04/15/25 02:46 04/15/25 02:46 04/15/25 02:46 04/15/25 02:46 Oxygen Delivery Method Room Air Weight: 281 lb 8 oz Body Mass Index (BMI) 42.7 Intake & Output: Intake and Output for Last 24 Hours 04/13/25 04/14/25 04/15/25 23:59 23:59 23:59 Intake Total 2663.33 / 2663.33 Output Total 1850 / 1850 Balance 813.33 / 813.33 Lab / Micro Data 04/14/25 06:35 ROS Constitutional Constitutional: Reports systems reviewed and no addt'l complaints, except as documented Cardiovascular Cardiovascular: Reports systems reviewed and no addt'l complaints, except as documented Respiratory/Chest Respiratory/Chest: Reports systems reviewed and no addt'l complaints, except as documented Gastrointestinal Gastrointestinal: Reports systems reviewed and no addt'l complaints, except as documented Physical Exam Const alert, oriented x3 and no apparent distress HEENT Head and Scalp: atraumatic Resp normal respiratory effort GI soft to palpation and non-tender Inspection: incision intact, healing well and drainage (none) Bimanual Exam - Vag & Uterus: uterus non-tender Uterus Palpation: uterus fundus firm (below Umbilicus) Assessment & Plan (1) Status post section: COMMENT: Breech- willian- jV 04/13/25 PLAN: Plan s/p LTCS PPD # 2 1. routine post care 2. breast feeding- support given 3. rh positive 4. rubella immune
--- NOTE | 2025-04-15 07:33 | PCM.DC.SUM ---
Providers Date of Admission: 04/13/25 Primary Care Physician: No Primary Care Phys Reason For Visit: PRIMARY C SECTION Diagnosis Discharge Diagnosis (1) Status post section: Status: Acute Code(s): Z98.891 - History of uterine scar from previous surgery Plan s/p LTCS PPD # 2 1. routine post care 2. breast feeding- support given 3. rh positive 4. rubella immune Medications at Discharge Home Medications blood sugar diagnostic (Blood Glucose Test strips) #120 01/18/25 blood-glucose meter #1 01/18/25 lancets #200 ea 01/18/25 vits 75-iron 28 mg-folic acid 800 mcg-omega-3 oral combo pack (One A Day Women's DHA) 1 pkg PO DAILY 03/30/25 ibuprofen 800 mg tablet 800 mg PO Q8H PRN pain #30 tabs 04/13/25 oxycodone-acetaminophen 5 mg-325 mg tablet (Percocet) 1 tab PO Q4H PRN pain 7 days #20 tabs 04/13/25 Hospital Course Summary of Care Provided Hospital Course: patient presented for [facility] and had an uncomplicated delivery. Postoperatively patient had return of bowel and bladder function and was ambulating well, tolerating adequate p.o., and was stable for discharge to home on postop day #2. Discharge medications naproxen and Percocet. Follow-up in office in 2 weeks for incision check in 6 weeks for visit. Routine post section diet and activity instructions. Weight / BMI Weight Weight: 281 lb 8 oz Body Mass Index (BMI) 42.7 ABG / Lab / Microbiology Data 04/14/25 06:35 D/C Instructions Discharge Activity: May Not Drive (for 2 weeks or while taking narcotic pain medications.), May Shower and May Take a Tub Bath (in 7 days) May shower in (days): 0 May resume sexual activity in: 4-6 weeks Weight Bearing Status: Full weight bearing Call your doctor if your incision/area has: Continuous Slow Oozing, Sudden Increased Bleeding, Increased Pain/ Swelling, Increased Redness and Foul Smelling Discharge Call your doctor if you observe: Fever of 101 or Higher and Using more than 1 pad per hour Suture Line Care: Avoid Pulling/Pushing and Avoid Pinching/Bending Cleanse incision/area with: Soap & Water and Keep Dressing Clean & Dry DC O2, CPAP, BIPAP Needs Home O2 Discharge instructions: No Please Follow Up With: Rafaela Barksdale, When: Call [phone] to make an appointment for an incision check in 1-2 weeks. Meaningful Use Info Meaningful Use Meaningful Use Diagnoses (Choose all that apply): None applicable Discharge Plan Admission Admit Date/Time: 04/13/25 05:20 Primary Reason for Your Visit: Attending Provider: Rafaela Barksdale Primary Care Provider: Win Reyes,Lindsay Primary Discharge Orders/Prescriptions Prescriptions: New ibuprofen 800 mg tablet 800 mg PO Q8H PRN (Reason: pain) Qty: 30 0RF oxycodone-acetaminophen [Percocet] 5-325 mg tablet 1 tab PO Q4H PRN (Reason: pain) 7 Days Qty: 20 0RF Continued One A Day Women's DHA 28 mg iron- 800 mcg combo pack 1 pkg PO DAILY Patient Comments: takes one tablet a day (DME) Blood Glucose Test Strip See Rx Instructions .MEDSUPPLY Qty: 120 5RF Rx Instructions: As directed-fasting & 2 hr post meals (DME) blood-glucose meter Misc See Rx Instructions .MEDSUPPLY Qty: 1 0RF Rx Instructions: As directed- Test fasting and 2 hours after meals (DME) lancets Misc See Rx Instructions .MEDSUPPLY Qty: 200 5RF Rx Instructions: As directed-fasting & 2 hr post meals Referrals / Follow Up: Care Physician,No Primary [Primary Care Provider, Medical]
[2025-04-15 09:13] VITALS: BP 131/71; RESP 18; TEMP 36.7; O2SAT 98
[2025-04-15 09:16] LABS: Pathology Specimen OB SEE PATHOLOGY REPORT
[2025-04-15] MEDS: Senna/Docusate Sodium 1 Tablet PO (12:32)
[2025-04-15 15:00] VITALS: BP 129/68; RESP 16; TEMP 36.1; O2SAT 98
[2025-04-15 20:00] VITALS: BP 129/70; PULSE 97; RESP 16; TEMP 36.6; O2SAT 98
[2025-04-16 01:39] VITALS: BP 138/73; PULSE 93; RESP 16; TEMP 36.6; O2SAT 97
[2025-04-16] MEDS: Senna/Docusate Sodium 1 Tablet PO ×2 (08:41)
[2025-04-16 08:43] VITALS: BP 139/72; PULSE 96; RESP 16; TEMP 36.6
--- NOTE | 2025-04-16 12:42 | PCM.PN.OB ---
Subjective Subjective Patient doing well without complaints. Tolerating PO. Ambulating and voiding without difficulty. feeding well. Denies chest pain, shortness of breath, calf pain/swelling, fevers, chills, lightheadedness. Objective Data Objective Data Vital Signs: Vital Signs Temp Pulse Resp BP Pulse Ox O2 Del Method 97.9 F 96 16 139/72 H 97 Room Air 04/16/25 08:43 04/16/25 08:43 04/16/25 08:43 04/16/25 08:43 04/16/25 01:39 04/16/25 08:43 Oxygen Delivery Method Room Air Weight: 281 lb 8 oz Body Mass Index (BMI) 42.7 Intake & Output: Intake and Output for Last 24 Hours 04/13/25 04/14/25 04/15/25 23:59 23:59 23:59 Intake Total 2663.33 / 2663.33 Output Total 1850 / 1850 Balance 813.33 / 813.33 Lab / Micro Data 04/14/25 06:35 ROS Constitutional Constitutional: Reports systems reviewed and no addt'l complaints, except as documented Cardiovascular Cardiovascular: Reports systems reviewed and no addt'l complaints, except as documented Respiratory/Chest Respiratory/Chest: Reports systems reviewed and no addt'l complaints, except as documented Gastrointestinal Gastrointestinal: Reports systems reviewed and no addt'l complaints, except as documented Physical Exam Const alert, oriented x3 and no apparent distress HEENT Head and Scalp: atraumatic Resp normal respiratory effort GI soft to palpation and non-tender Inspection: incision intact, healing well and drainage (none) Bimanual Exam - Vag & Uterus: uterus non-tender Uterus Palpation: uterus fundus firm (below Umbilicus) Assessment & Plan (1) Status post section: COMMENT: Breech- willian- jV 04/13/25 PLAN: Plan s/p LTCS PPD # 3 1. routine post care 2. breast feeding- support given 3. rh positive 4. rubella immune
[2025-04-16 17:32] VITALS: BP 132/71; RESP 18; TEMP 36.9; O2SAT 98
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
--- NOTE | 2025-04-20 14:15 | NURSING ---
F/up phone call performed-- reports last night was the best night they've had. Milk is in, was able to pump 6-7oz once yesterday, about 3oz today. PCP appt for infant yesterday, came up with good feeding plan q2hrs during the day, q3hrs during the night. 's weight was up at that appt. Still has some clogged ducts, but massaging them out gently. Had questions about pitcher method and pump parts cleaning-- all questions answered. Denies s+s of complications. Encouragement and support given.
== END 2025-04-16 17:35 | disposition home or self-care (01) | DRG 788 ==
PROVIDERS: Admitting Provider Obstetrics & Gynecology; Referring Provider Obstetrics & Gynecology; Visit Provider Obstetrics & Gynecology
PROC: 10D00Z1 Extraction of Products of Conception, Low, Open Approach (ICD-10-PCS; CPT 59514; principal; 2025-04-13 07:00)
DX: O32.1XX0 Maternal care for breech presentation, not applicable or unspecified (principal); O99.214 Obesity complicating childbirth; N83.8 Other noninflammatory disorders of ovary, fallopian tube and broad ligament; O24.420 Gestational diabetes mellitus in childbirth, diet controlled; O12.14 Gestational proteinuria, complicating childbirth; O69.81X0 Labor and delivery complicated by cord around neck, without compression, not applicable or unspecified; O34.83 Maternal care for other abnormalities of pelvic organs, third trimester; O99.892 Other specified diseases and conditions complicating childbirth; Z37.0 Single live birth; Z3A.39 39 weeks gestation of pregnancy; Z87.891 Personal history of nicotine dependence
CPT/HCPCS: 36415; 59025; 59050; 82962; 85025; 85027; 86780; 86850; 86900; 86901; 88302; 99221; A4216; G0378; J2405

== ENCOUNTER → 2025-04-28 | Outpatient (CLI) | payer OTHER, SELFPAY | END | disposition home or self-care (01) | LOC: LABSPEC 16:20 | PROVIDERS: Visit Provider Nurse Practitioner Women's Health | DX: R30.0 Dysuria (principal) | CPT/HCPCS: 87086; 87088 ==